=== PATIENT | male | born 1960 | race Caucasian/White ===

== ENCOUNTER 2020-04-21 10:18 | Emergency (ER) | payer OTHER ==
[~2020-04-21] VITALS: Ht 180.3 cm; Wt 78.4 kg
[2020-04-21] MEDS ORDERED: LISI10TA4 PO (10:28)
--- NOTE | 2020-04-21 10:59 | REP ---
Clinical: Trauma. Injury. Technique: AP, lateral, bilateral oblique views of the right second digit. Findings: Age-related degenerative changes are appreciated. Soft tissue swelling is suggested. No acute fracture or dislocation. No obvious foreign body. Impression: No acute fracture or dislocation. Electronically Signed by Yury Parker MD 04/21/2020 10:50 A
[2020-04-21] MEDS ORDERED: CEPHALEXIN 500 MG CAP PO ONE (11:15)
[2020-04-21] MEDS ORDERED: LIDOCAINE 2% MDV 20ML VIAL SC ONE (11:15)
[2020-04-21] MEDS ORDERED: KEFL500C17 PO (12:35)
[2020-04-21] MEDS ORDERED: NORC1TAB7 PO (12:36)
[2020-04-21 12:51] VITALS: BP 133/88
== END 2020-04-21 12:57 | disposition home or self-care (01) ==
LOC: M ED 10:18
DX: S61.210A Laceration without foreign body of right index finger without damage to nail, initial encounter (principal); W23.0XXA Caught, crushed, jammed, or pinched between moving objects, initial encounter; Y92.018 Other place in single-family (private) house as the place of occurrence of the external cause; I10 Essential (primary) hypertension; Z79.899 Other long term (current) drug therapy; Z88.1 Allergy status to other antibiotic agents

== ENCOUNTER → 2021-02-10 | Outpatient (CLI) | payer OTHER ==
[~2021-02-10] MED LIST: KEFL500C17 PO; LISI10TA22 PO; NORC1TAB7 PO
--- NOTE | 2021-02-10 14:38 | REP ---
INDICATION: PAIN IN RIGHT SHOULDER COMPARISON: None. TECHNIQUE: Internal rotation, external rotation, and Y view. FINDINGS: Advanced degenerative changes include cortical irregularity and broad-based osteophyte formation along the greater tuberosity/lateral margin of the humeral head as well as the inferior periarticular portion of the humeral head. There is associated sclerosis and irregularity to the calcified glenoid rim. The subacromial space is decreased. No periarticular calcifications are identified. There appears to be prior surgical intervention at the distal clavicle. IMPRESSION: Early advanced arthritic degenerative changes. <Electronically signed by Yury Parker > 02/10/21 [id number]
== END ==
LOC: M ADAMS 10:47
PROVIDERS: ATTEND Physician Assistant Medical
DX: M19.011 Primary osteoarthritis, right shoulder (principal)

== ENCOUNTER → 2021-03-25 | Outpatient (CLI) | payer OTHER ==
[~2021-03-25] MED LIST changes: +ISOVUE-300 61% 50ML VIAL As Ordered ONE; +LIDOCAINE 1% MDV 20ML VIAL As Ordered ONE
--- NOTE | 2021-03-25 10:44 | REP ---
INDICATION: OA OF RT SHOULDER, STRAIN OF MUSC/TEND. COMPARISON: None. TECHNIQUE: Standard helical technique using 2-3 mm increments and reconstructed in both sagittal and coronal reconstructions after the glenohumeral injection of radiographic contrast. The glenohumeral injection was performed by Jacquelyn SILVERIO. FINDINGS: There is a very subtle hairline linear collection of contrast in the inferior labrum best seen on the coronal images but on the axial as well. Some of the injected contrast has migrated superior to the supraspinatus tendon. IMPRESSION: 1. Very subtle findings suggesting a partial inferior labral tear. 2. Evidence of a supraspinatus tendon tear. <Electronically signed by Gautam Olmos > 03/25/21 1048
--- NOTE | 2021-03-25 14:51 | REP ---
INDICATION: OA OF RT SHOULDER, STRAIN OF MUSC/TEND. COMPARISON: None TECHNIQUE: The procedure was performed by JEAN CLAUDE King, under the direct supervision of Dr. Dominguez. The benefits and risks of the procedure were explained to the patient, and an informed consent was obtained. Directly prior to the start of the procedure, a formal time-out was completed in the procedure room. The right glenohumeral joint space was localized using fluoroscopic guidance. The skin was prepped and draped in a sterile fashion. Approximately 5 mL of 1% Lidocaine 10 mg/ml was used as a local anesthetic. Using fluoroscopic guidance, a #22 gauge spinal needle was inserted and advanced into the right glenohumeral joint space. Approximately 12 mL of Isovue 300 was injected to verify placement and for postprocedural imaging. The needle was removed and the patient was taken to CT for post procedural imaging. FINDINGS: The patient tolerated the procedure well and there were no immediate complications. IMPRESSION: Fluoroscopically guided right shoulder intra-articular CT arthrogram. 0.1 minutes of fluoroscopy time was utilized for this procedure. Some fluoroscopic images are performed with last image hold technology. These images require no additional radiation. <Electronically signed by Jacquelyn Medina > 03/25/21 0136 <Electronically signed by Des Dominguez > 03/25/21 [id number]
== END ==
LOC: M RADPRO 08:39
PROVIDERS: ATTEND Orthopaedic Surgery Sports Medicine
DX: M19.011 Primary osteoarthritis, right shoulder (principal); S46.011A Strain of muscle(s) and tendon(s) of the rotator cuff of right shoulder, initial encounter; Y99.8 Other external cause status; Y92.9 Unspecified place or not applicable; Y93.9 Activity, unspecified; X58.XXXA Exposure to other specified factors, initial encounter
CPT/HCPCS: 23350; 73200; 77002; Q9967

== ENCOUNTER → 2021-06-09 | Outpatient (REF) | payer OTHER ==
[~2021-06-09] MED LIST changes: -ISOVUE-300 61% 50ML VIAL As Ordered ONE; -LIDOCAINE 1% MDV 20ML VIAL As Ordered ONE
[2021-06-09 12:47] LABS: BASO # 0.1 10^3/uL (0.0-0.2); BASO % 0.9 % (0.0-1.0); EOS # 0.3 10^3/uL (0.0-0.5); EOS % 3.6 % (0.0-3.0); HEMATOCRIT 43.2 % (42.0-52.0); HEMOGLOBIN 14.5 g/dl (13.5-17.5); LYMPH # 2.5 10^3/uL (1.5-5.0); LYMPH % 32.5 % (24.0-44.0); MEAN CORPUSCULAR HEMOGLOBIN 32.6 pg (27.0-33.0); MEAN CORPUSCULAR HGB CONC 33.6 g/dl (32.0-36.5); MEAN CORPUSCULAR VOLUME 97.1 fl (80.0-96.0); MONO # 0.6 10^3/uL (0.0-0.8); MONO % 7.1 % (2.0-8.0); NEUTROPHILS # 4.3 10^3/uL (1.5-8.5); NEUTROPHILS % 55.5 % (36.0-66.0); PLATELET COUNT, AUTOMATED 184 10^3/uL (150-450); RED BLOOD COUNT 4.45 10^6/uL (4.30-6.10); WHITE BLOOD COUNT 7.7 10^3/uL (4.0-10.0)
[2021-06-09 13:56] LABS: ALBUMIN 3.7 GM/DL (3.2-5.2); ALT/SGPT 28 U/L (12-78); BILIRUBIN,TOTAL 0.3 MG/DL (0.2-1.0); BLOOD UREA NITROGEN 14 MG/DL (7-18); CALCIUM LEVEL 8.9 MG/DL (8.8-10.2); CARBON DIOXIDE LEVEL 28 MEQ/L (21-32); CHLORIDE LEVEL 108 MEQ/L (98-107); CHOLESTEROL LEVEL 193 MG/DL (<200); CHOLESTEROL RISK RATIO 4.386 (<5); GLOMERULAR FILTRATION RATE > 60.0 (>49); GLUCOSE, FASTING 85 MG/DL (70-100); HDL CHOLESTEROL 44 MG/DL (>40); LDL CHOLESTEROL 118 MG/DL (<100); NON-HDL-C 149 MG/DL; POTASSIUM SERUM 4.3 MEQ/L (3.5-5.1); SODIUM LEVEL 140 MEQ/L (136-145); TOTAL PROTEIN 6.8 GM/DL (6.4-8.2); TRIGLYCERIDES LEVEL 154 MG/DL (<150)
== END ==
LOC: M SFHCADAM 09:47
PROVIDERS: ATTEND Physician Assistant Medical
DX: I10 Essential (primary) hypertension (principal); N52.9 Male erectile dysfunction, unspecified; L56.8 Other specified acute skin changes due to ultraviolet radiation; F17.210 Nicotine dependence, cigarettes, uncomplicated

== ENCOUNTER 2021-07-16 13:49 | Emergency (ER) | payer OTHER ==
[~2021-07-16] VITALS: Ht 180.3 cm; Wt 81.4 kg
--- OUTSIDE RECORDS SUMMARY | 2021-07-16 13:58 | CCD | Continuity of Care Document ---
Author Author Nathalia NurseDon Organization Unknown Address [address] [place] [address] Phone [phone] Care Team Providers Care Data Warehouse Consultant Name Role Phone Alexandr Gardner MD AUTM [phone] Problems Active Problems Provider Date Psychogenic impotence Duc Simons MD Onset: 05/14/20 19 Neoplasm of uncertain behavior of prostate Duc white MD Onset: 05/14/2019 Benign prostatic hyperplasia with lower urinary tract symptoms Duc Simons MD Onset: 06/30/2019 Dysuria Duc Simons MD Onset: 06/30/2019 Dribbling of urine Duc Simons MD Onset: 06/30/2019 Poor stream of urine Rob Aviles MD Onset: 12/26/2019 Vasculopathic erectile dysfunction [facility] Onset : 06/03/2020 Vasculopathic erectile dysfunction Rbo Aviles MD Onset : 01/20/2021 Social History Type Date Description Comments Sex Male Tobacco Use Start: Unknown current cigarette smoker started smoking at age 53 Smoking Status Reviewed: 06/14/20 current cigarette smoker star elli smoking at age 53 ETOH Use Consumes 2 beers per day Allergies, Adverse Reactions, Alerts Description No Known Drug Allergies Medications Active Medications SIG Qnty Indications Ordering Provide r Date Tadalafil 20mg Tablets 1 by mouth one hour prior to sex 30tabs F52.21 Rob Aviles MD 09/27/2020 Flomax 0.4mg Capsules take one 30 minutes after dinner daily 30caps N40.1 Rob Aviles MD 0 Lisinopril 5mg Tablets Take One Tablet By Mouth Every Day Unknown Immunizations Description No Information Available Vital Signs Date Vital Result Comment 06/01/2021 9:58am Body Temperature 97.8 F 01/20/2021 9:13am BP Systolic 142 mmHg BP Diastolic 90 mmHg Heart Rate 72 /min Body Temperature 97.9 F Post Void Residual ml 29 Bladder Scanner Results Test Acquired Date Facility Test Result H/L Range Note Laboratory test finding 06/01/2021 [facility] [address] [place] [address] [phone] Total Psa Only 0.39 ng/mL 0.00-4.10 230 Ua Routine 01/20/2021 [facility] REF TO ADDRESS ON ORDER FOR (315)- - Ua Glucose Negative Ua Protein Negative Ua Nitrite Negative Ua Leuko Negative Ua Blood Negative Ua Color Not Entered Ua Ketones Negative Ua Clarity Not Entered Ua Specific [place] >=1.030 1.003-1.030 Ua PH 5.0 5.0-7.5 Ua Bilirubin Negative Ua Urobilinogen 0.2 E.U./dL 0.0-1.0 Procedures Date Code Description Status 01/20/2021 70333 Office/Outpatient Established Lo w MDM 20-29 Min Completed 01/20/2021 66992 Bladder Scan, Post Voiding Resid ual Urine Completed Medical Devices Description No Information Available Encounters Type Date Location Provider Dx Diagnosis Office Visit 01/20/2021 9:15a [place]/ 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
--- OUTSIDE RECORDS SUMMARY | 2021-07-16 13:58 | CCD | Continuity of Care Document ---
Author Author Don BYRNE [facility] Organization Unknown Address [address] [place] [id number] Phone [phone] Problems Active Problems Provider Date Psychogenic impotence Duc Simons MD Onset: 05/14/20 19 Neoplasm of uncertain behavior of prostate Duc white MD Onset: 05/14/2019 Benign prostatic hyperplasia with lower urinary tract symptoms Duc Simons MD Onset: 06/30/2019 Dysuria Duc Simons MD Onset: 06/30/2019 Dribbling of urine Duc Simons MD Onset: 06/30/2019 Poor stream of urine Rob Aviles MD Onset: 12/26/2019 Vasculopathic erectile dysfunction [facility] Onset : 06/03/2020 Vasculopathic erectile dysfunction Rob Aviles MD Onset : 01/20/2021 Social History [...] Available Vital Signs Date Vital Result Comment 06/08/2021 2:15pm BP Systolic 150 mmHg BP Diastolic 90 mmHg Heart Rate 84 /min Respiratory Rate 18 /min 06/01/2021 9:58am Body Temperature 97.8 F Results Test Acquired Date Facility Test Result H/L Range Note 230 Ua Routine 06/08/2021 [facility] REF TO DR ADDRESS ON ORDER FOR (315)- - Ua Glucose Negative Ua Protein Negative Ua Nitrite Negative Ua Leuko Negative Ua Blood Negative Ua Color Not Entered Ua Ketones Negative Ua Clarity Not Entered Ua Specific [place] >=1.030 1.003-1.030 Ua PH 6.5 5.0-7.5 Ua Bilirubin Negative Ua Urobilinogen 1.0 E.U./dL 0.0-1.0 Laboratory test finding 06/01/2021 [facility] [address] [place] [address] [phone] Total Psa Only 0.39 ng/mL 0.00-4.10 230 Ua Routine 01/20/2021 [facility] REF TO DR ADDRESS ON ORDER FOR (315)- - Ua Glucose Negative Ua Protein Negative Ua Nitrite Negative Ua Leuko Negative Ua Blood Negative Ua Color Not Entered Ua Ketones Negative Ua Clarity Not Entered Ua Specific [place] >=1.030 1.003-1.030 Ua PH 5.0 5.0-7.5 Ua Bilirubin Negative Ua Urobilinogen 0.2 E.U./dL 0.0-1.0 Procedures Date Code Description Status 06/08/2021 42602 Office/Outpatient Established Mo d MDM 30-39 Min Completed 01/20/2021 63893 Office/Outpatient Established Lo w MDM 20-29 Min Completed 01/20/2021 87387 Bladder Scan, Post Voiding Resid ual Urine Completed Medical Devices Description No Information Available Encounters Type Date Location Provider Dx Diagnosis Office Visit 06/08/2021 2:00p [place]/ [facility] NICHOLAS Don N40.1 Benign prostatic hyperplasia with lower urinary tract symp R39.12 Poor urinary stream N52.03 Comb artrl insuff & corporo- venous occlusv erectile dysfnct Office Visit 01/20/2021 9:15a [place]/ 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 NICHOLAS Saldivar 06/01/2021 N40.1 Benign prostatic hyperplasia wit h lower urinary tract symptoms Rob Aviles MD 06/01/2021 N40.1 Benign prostatic hyperplasia wit h lower urinary tract symptoms [place] Nurse 06/01/2021 N40.1 Benign prostatic hyperplasia wit h lower urinary tract symp Ham Fraire MD 01/20/2021 N40.1 Benign prostatic hyperplasia wit h lower urinary tract symptoms Rob Aviles MD 01/20/2021 R39.12 Poor urinary stream Rob salazar MD 01/20/2021 

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
--- OUTSIDE RECORDS SUMMARY | 2021-07-16 13:58 | CCD | Continuity of Care Document ---
Author Author Don BYRNE [facility] Organization Unknown Address [address] [place] [address] Phone [phone] Problems Active Problems Provider Date Psychogenic impotence Duc Simons MD Onset: 05/14/20 19 Neoplasm of uncertain behavior of prostate Duc white MD Onset: 05/14/2019 Benign prostatic hyperplasia with lower urinary tract symptoms Duc Simons MD Onset: 06/30/2019 Dysuria Duc Simons MD Onset: 06/30/2019 Dribbling of urine Duc Simons MD Onset: 06/30/2019 Poor stream of urine Rob Aviles MD Onset: 12/26/2019 Vasculopathic erectile dysfunction [facility] Onset : 06/03/2020 Vasculopathic erectile dysfunction [...] Negative Ua Clarity Not Entered Ua Specific [place] >=1.030 1.003-1.030 Ua PH 6.5 5.0-7.5 Ua Bilirubin Negative Ua Urobilinogen 1.0 E.U./dL 0.0-1.0 Laboratory test finding 06/01/2021 [facility] [address] [place] [address] [phone] Total Psa Only 0.39 ng/mL 0.00-4.10 230 Ua Routine 01/20/2021 [facility] REF TO DR ADDRESS ON ORDER FOR (315)- - Ua Glucose Negative Ua Protein Negative Ua Nitrite Negative Ua Leuko Negative Ua Blood Negative Ua Color Not Entered Ua Ketones Negative Ua Clarity Not Entered Ua Specific [place] >=1.030 1.003-1.030 Ua PH 5.0 5.0-7.5 Ua Bilirubin Negative Ua Urobilinogen 0.2 E.U./dL 0.0-1.0 Procedures Date Code Description Status 06/08/2021 85670 Office/Outpatient Established Mo d MDM 30-39 Min Completed 01/20/2021 20861 Office/Outpatient Established Lo w MDM 20-29 Min Completed 01/20/2021 99589 Bladder Scan, Post Voiding Resid ual Urine Completed Medical Devices Description No Information Available Encounters Type Date Location Provider Dx Diagnosis Office Visit 06/08/2021 2:00p [place]/ [facility] NICHOLAS Don N40.1 Benign prostatic hyperplasia with lower urinary tract symp R39.12 Poor urinary stream N52.03 Comb artrl insuff & corporo- venous occlusv erectile dysfnct Office Visit 01/20/2021 9:15a [place]/ 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 * 06/08/2022 9:00 am - [place] Nurse at [place] 06/08/2021 - NICHOLAS Saldivar* N40.1 [...]
--- OUTSIDE RECORDS SUMMARY | 2021-07-16 13:58 | CCD | Continuity of Care Document ---
Author Author Nathalia NurseDon Organization Unknown Address [address] [place] [address] Phone [phone] Care Team Providers Care Form Maker Name Role Phone Alexandr Gardner MD AUTM [phone] Problems Active Problems Provider Date Psychogenic impotence [...] MD Onset: 12/26/2019 Vasculopathic erectile dysfunction [facility] Onset : 06/03/2020 Vasculopathic erectile dysfunction [...] finding 06/01/2021 [facility] [address] [place] [address] [phone] PSA Total <pending> 230 Ua Routine 01/20/2021 [facility] REF TO DR ADDRESS ON ORDER FOR (169)- - Ua Glucose Negative Ua Protein Negative Ua Nitrite Negative Ua Leuko Negative Ua Blood Negative Ua Color Not Entered Ua Ketones Negative Ua Clarity Not Entered Ua Specific [place] >=1.030 1.003-1.030 Ua PH 5.0 5.0-7.5 Ua Bilirubin Negative Ua Urobilinogen 0.2 E.U./dL 0.0-1.0 Procedures Date Code Description Status 01/20/2021 15238 Office/Outpatient Established Lo w MDM 20-29 Min Completed 01/20/2021 04427 Bladder Scan, Post Voiding Resid ual Urine Completed Medical Devices Description No Information Available Encounters Type Date Location Provider Dx Diagnosis Office Visit 01/20/2021 9:15a [place]/ 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 01/20/2021 - Rob Aviles MD* N40.1 Benign [...]
--- OUTSIDE RECORDS SUMMARY | 2021-07-16 13:58 | CCD | Continuity of Care Document ---
Author Author Don [facility]NE [facility] Organization Unknown Address [address] [place] [address] Phone [phone] Problems Active Problems Provider Date Psychogenic impotence Duc Simons MD Onset: 05/14/20 19 Neoplasm of uncertain behavior of prostate Duc white MD Onset: 05/14/2019 Benign prostatic hyperplasia with lower urinary tract symptoms Duc Simons MD Onset: 06/30/2019 Dysuria Duc Simons MD Onset: 06/30/2019 Dribbling of urine Duc Simons MD Onset: 06/30/2019 Poor stream of urine Rob Aviles MD Onset: 12/26/2019 Vasculopathic erectile dysfunction [facility] Onset : 06/03/2020 Vasculopathic erectile dysfunction Rob [...] Negative Ua Clarity Not Entered Ua Specific [place] >=1.030 1.003-1.030 Ua PH 6.5 5.0-7.5 Ua Bilirubin Negative Ua Urobilinogen 1.0 E.U./dL 0.0-1.0 Laboratory test finding 06/01/2021 [facility] [address] [place] [address] [phone] Total Psa Only 0.39 ng/mL 0.00-4.10 230 Ua Routine 01/20/2021 [facility] REF TO DR ADDRESS ON ORDER FOR (315)- - Ua Glucose Negative Ua Protein Negative Ua Nitrite Negative Ua Leuko Negative Ua Blood Negative Ua Color Not Entered Ua Ketones Negative Ua Clarity Not Entered Ua Specific [place] >=1.030 1.003-1.030 Ua PH 5.0 5.0-7.5 Ua Bilirubin Negative Ua Urobilinogen 0.2 E.U./dL 0.0-1.0 Procedures Date Code Description Status 06/08/2021 08867 Office/Outpatient Established Mo d MDM 30-39 Min Completed 01/20/2021 77666 Office/Outpatient Established Lo w MDM 20-29 Min Completed 01/20/2021 22395 Bladder Scan, Post Voiding Resid ual Urine Completed Medical Devices Description No Information Available Encounters Type Date Location Provider Dx Diagnosis Office Visit 06/08/2021 2:00p [place]/ [facility] NICHOLAS Don N40.1 Benign prostatic hyperplasia with lower urinary tract symp R39.12 Poor urinary stream N52.03 Comb artrl insuff & corporo- venous occlusv erectile dysfnct Office Visit 01/20/2021 9:15a [place]/ 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 Urology * 06/08/2022 9:00 am - [place] Nurse at [place] 06/08/2021 - NICHOLAS Saldivar* N40.1 [...]
--- OUTSIDE RECORDS SUMMARY | 2021-07-16 13:58 | CCD | Continuity of Care Document ---
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 Benign prostatic hyperplasia with lower urinary tract symptoms Duc Simons MD Onset: 06/30/2019 Dysuria Duc Simons MD Onset: 06/30/2019 Dribbling of urine Duc Simons MD Onset: 06/30/2019 Poor stream of urine Rob Aviles MD Onset: 12/26/2019 Vasculopathic erectile dysfunction [facility] Onset : 06/03/2020 Vasculopathic erectile dysfunction [...] Negative Ua Clarity Not Entered Ua Specific [place] >=1.030 1.003-1.030 Ua PH 6.5 5.0-7.5 Ua Bilirubin Negative Ua Urobilinogen 1.0 E.U./dL 0.0-1.0 Laboratory test finding 06/01/2021 [facility] [address] [place] [address] [phone] Total Psa Only 0.39 ng/mL 0.00-4.10 230 Ua Routine 01/20/2021 [facility] REF TO DR ADDRESS ON ORDER FOR (315)- - Ua Glucose Negative Ua Protein Negative Ua Nitrite Negative Ua Leuko Negative Ua Blood Negative Ua Color Not Entered Ua Ketones Negative Ua Clarity Not Entered Ua Specific [place] >=1.030 1.003-1.030 Ua PH 5.0 5.0-7.5 Ua Bilirubin Negative Ua Urobilinogen 0.2 E.U./dL 0.0-1.0 Procedures Date Code Description Status 06/08/2021 16269 Office/Outpatient Established Mo d MDM 30-39 Min Completed 01/20/2021 94533 Office/Outpatient Established Lo w MDM 20-29 Min Completed 01/20/2021 45601 Bladder Scan, Post Voiding Resid ual Urine Completed Medical Devices Description No Information Available Encounters Type Date Location Provider Dx Diagnosis Office Visit 06/08/2021 2:00p [place]/ 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 Urology * 06/08/2022 9:00 am - [place] Nurse at [place]/ A.P Urology 06/08/2021 - NICHOLAS Saldivar* N40.1 [...]
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
--- OUTSIDE RECORDS SUMMARY | 2021-07-16 13:58 | CCD | Continuity of Care Document ---
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/2019 Benign prostatic hyperplasia with lower urinary tract symptoms Duc Simons MD Onset: 06/30/2019 Dysuria Duc Simons MD Onset: 06/30/2019 Dribbling of urine Duc Simons MD Onset: 06/30/2019 Poor stream of urine Rob Aviles MD Onset: 12/26/2019 Vasculopathic erectile dysfunction [facility] Onset : 06/03/2020 Vasculopathic erectile dysfunction Rob [...] finding 06/01/2021 [facility] [address] [place] [address] [phone] PSA Total <pending> 230 Ua Routine 01/20/2021 [facility] REF TO DR ADDRESS ON ORDER FOR (354)- - Ua Glucose Negative Ua Protein Negative Ua Nitrite Negative Ua Leuko Negative Ua Blood Negative Ua Color Not Entered Ua Ketones Negative Ua Clarity Not Entered Ua Specific [place] >=1.030 1.003-1.030 Ua PH 5.0 5.0-7.5 Ua Bilirubin Negative Ua Urobilinogen 0.2 E.U./dL 0.0-1.0 Procedures Date Code Description Status 01/20/2021 32935 Office/Outpatient Established Lo w MDM 20-29 Min Completed 01/20/2021 39333 Bladder Scan, Post Voiding Resid ual Urine Completed Medical Devices Description No Information Available Encounters Type Date Location Provider Dx Diagnosis Office Visit 01/20/2021 9:15a [place]/ 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 Urology 01/20/2021 - Rob Aviles MD* [...]
--- OUTSIDE RECORDS SUMMARY | 2021-07-16 13:58 | CCD ---
Author Author [facility] Organization [facility] Address Unknown Phone Unavailable Care Team Providers Care Towboat Captain Name Role Phone Mary Collins Unavailable PROBLEMS Type Condition ICD9-CM Code [id number] Code Onset Dates Condition S tatus W/U Status Risk SNOMED Code Notes Problem Cigarette nicotine dependence without complication F17.210 Active confirmed 43139302 Problem Photosensitivity L56.8 Active confirmed 901 56548 Problem Essential hypertension I10 Active confirmed 54186938 Problem Other chronic pain G89.29 Active confirmed 8 8370909 Problem Erectile dysfunction, unspecified erectile dysfunction typ e N52.9 Active confirmed 523700470 ALLERGIES No Known Allergies ENCOUNTERS from 1960 to 2021-06-09 Encounter Location Date Provider Diagnosis [address] [place] [address] May, Mary Collins IMMUNIZATIONS No Information SOCIAL HISTORY Tobacco Use: Social History Observation Description Date Details (start date - stop date) Current Smoker Sex Assigned At : Social History Observation Description Sex Assigned At Unknown Education: Question Answer Notes Level of Education: College Audit Question Answer Notes Total Score: 4 Interpretation: Alcohol Education Language: Question Answer Notes Languages spoken: Vincentian Quaker: Question Answer Notes Quaker buddhist Sexual Hx: Question Answer Notes Had sex [...] Information RESULTS No Results REASON FOR VISIT window tint sticker MEDICAL (GENERAL) HISTORY Type Description Date Medical [...] Information ASSESSMENTS No Information PLAN OF TREATMENT No Information Insurance Providers Payer Name Payer Address Payer Phone Insured Name Patient Relati onship to Insured Coverage Start Date Coverage End Date [facility] CORPORATE CLAIMS DEPT [place] [id number] [place] [phone] MANUEL DAVIS self
--- OUTSIDE RECORDS SUMMARY | 2021-07-16 13:58 | CCD | Continuity of Care Document ---
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 Onset : 06/03/2020 Vasculopathic erectile dysfunction [...] finding 06/01/2021 [facility] [address] [place] [address] [phone] Total Psa Only 0.39 ng/mL 0.00-4.10 230 Ua Routine 01/20/2021 [facility] REF TO DR ADDRESS ON ORDER FOR (464)- - Ua Glucose Negative Ua Protein Negative Ua Nitrite Negative Ua Leuko Negative Ua Blood Negative Ua Color Not Entered Ua Ketones Negative Ua Clarity Not Entered Ua Specific [place] >=1.030 1.003-1.030 Ua PH 5.0 5.0-7.5 Ua Bilirubin Negative Ua Urobilinogen 0.2 E.U./dL 0.0-1.0 Procedures Date Code Description Status 01/20/2021 88231 Office/Outpatient Established Lo w MDM 20-29 Min Completed 01/20/2021 38300 Bladder Scan, Post Voiding Resid ual Urine Completed Medical Devices Description No Information Available Encounters Type Date Location Provider Dx Diagnosis Office Visit 01/20/2021 9:15a [place]/ 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
--- OUTSIDE RECORDS SUMMARY | 2021-07-16 13:58 | CCD ---
Author Author [facility] Organization [facility] Address Unknown Phone Unavailable Care Team Providers Care Staff Analyst Name Role Phone Mary Collins Unavailable PROBLEMS Type Condition ICD9-CM Code [id number] Code Onset Dates Condition S tatus W/U Status Risk SNOMED Code Notes Problem Cigarette nicotine dependence without complication F17.210 Active confirmed 00856428 Problem Photosensitivity L56.8 Active confirmed 901 09243 Problem Essential hypertension I10 Active confirmed 17031163 Problem Other chronic pain G89.29 Active confirmed 8 2286615 Problem Erectile dysfunction, unspecified erectile dysfunction typ e N52.9 Active confirmed 095496406 ALLERGIES No Known Allergies ENCOUNTERS from 1960 to 2021-06-14 Encounter Location Date Provider Diagnosis [address] [place] [address] 14 Jun, 2021 Mary Collins IMMUNIZATIONS No Information SOCIAL HISTORY Tobacco Use: Social History Observation Description Date Details (start date - stop date) Current Smoker Sex Assigned At : Social History Observation Description Sex Assigned At Unknown Education: Question Answer Notes Level of Education: College Audit Question Answer Notes Total Score: 4 Interpretation: Alcohol Education Language: Question Answer Notes Languages spoken: Argentine Presybeterian: Question Answer Notes [employer]ybeterian [employer] Sexual Hx: Question Answer Notes Had sex [...] Information RESULTS No Results REASON FOR VISIT 2nd opinion MEDICAL (GENERAL) HISTORY Type Description Date Medical [...] Insured Coverage Start Date Coverage End Date [facility] CORPORATE CLAIMS DEPT [address] [place] [phone] MANUEL DAVIS self
--- OUTSIDE RECORDS SUMMARY | 2021-07-16 13:58 | CCD | Continuity of Care Document ---
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 white MD Onset: 05/14/2019 Benign prostatic hyperplasia with lower urinary tract symptoms Duc Simons MD Onset: 06/30/2019 Dysuria Duc Simons MD Onset: 06/30/2019 Dribbling of urine Duc Simons MD Onset: 06/30/2019 Poor stream of urine Rob Aviles MD Onset: 12/26/2019 Vasculopathic erectile dysfunction [facility] Onset : 06/03/2020 Vasculopathic erectile dysfunction [...] finding 06/01/2021 [facility] [address] [place] [address] [phone] PSA Total <pending> 230 Ua Routine 01/20/2021 [facility] REF TO DR ADDRESS ON ORDER FOR (137)- - Ua Glucose Negative Ua Protein Negative Ua Nitrite Negative Ua Leuko Negative Ua Blood Negative Ua Color Not Entered Ua Ketones Negative Ua Clarity Not Entered Ua Specific [place] >=1.030 1.003-1.030 Ua PH 5.0 5.0-7.5 Ua Bilirubin Negative Ua Urobilinogen 0.2 E.U./dL 0.0-1.0 Procedures Date Code Description Status 01/20/2021 00123 Office/Outpatient Established Lo w MDM 20-29 Min Completed 01/20/2021 43972 Bladder Scan, Post Voiding Resid ual Urine Completed Medical Devices Description No Information Available Encounters Type Date Location Provider Dx Diagnosis Office Visit 01/20/2021 9:15a [place]/ A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 Urology 01/20/2021 - Rob Aviles MD* [...]
--- OUTSIDE RECORDS SUMMARY | 2021-07-16 13:58 | CCD ---
Author Author [facility] Organization [facility] Address Unknown Phone Unavailable Care Team Providers Care Cement Boat And Barge Loader Name Role Phone Mary Collins Unavailable PROBLEMS Type Condition ICD9-CM Code LJS65-RH Code Onset Dates Condition S tatus W/U Status Risk SNOMED Code Notes Problem Cigarette nicotine dependence without complication F17.210 Active confirmed 94244434 Problem Photosensitivity L56.8 Active confirmed 901 71742 Problem Essential hypertension I10 Active confirmed 78371031 Problem Other chronic pain G89.29 Active confirmed 8 8720444 Problem Erectile dysfunction, unspecified erectile dysfunction typ e N52.9 Active confirmed 650831111 ALLERGIES No Known Allergies ENCOUNTERS from 1960 to 2021-06-09 Encounter Location Date Provider Diagnosis [address] [place] [address] Jun, Mary Collins Essential hypertension I10 ; Erectile dy sfunction, unspecified erectile dysfunction type N52.9 ; Photosensitivity L56.8 and Cigarette nicotine dependence without complication F17.210 IMMUNIZATIONS No Information SOCIAL HISTORY Tobacco Use: Social History Observation Description Date Details (start date - stop date) Current Smoker Sex Assigned At : Social History Observation Description Sex Assigned At Unknown Education: Question Answer Notes Level of Education: College Audit Question Answer Notes Total Score: 4 Interpretation: Alcohol Education Language: Question Answer Notes Languages spoken: Slovak Faith: Question Answer Notes Faith sabianism Sexual Hx: Question Answer Notes Had sex [...] REASON FOR REFERRAL No Information VITAL SIGNS Weight 181 lbs Jun, Height 71 in Jun, BMI 25.24 kg/m2 Jun, Heart Rate 77 /min Jun, Respiratory Rate 18 /min Jun, Temperature 97.2 degrees Fahrenheit Jun, Oximetry 98 Jun, Blood pressure systolic 140 mm Hg Jun, Blood pressure diastolic 84 mm Hg Jun, MEDICATIONS Medication SIG (Take, Route, Frequency, Duration) Notes Start Da te End Date Status Tadalafil 20 MG 1 tablet Orally PRN Active Lisinopril 10 MG 1 tablet Orally Once a day for 30 day(s) Active PROCEDURES from 1960 to 2021-06-09 Procedure Date Ordered Result Body Site ELECTROCARDIOGRAM, COMPLETE EKG 2021-06-09 N/A RESULTS No Results REASON FOR VISIT [address] MEDICAL (GENERAL) HISTORY Type Description Date Medical [...] No Information FUNCTIONAL STATUS No Information ASSESSMENTS Encounter Date Diagnosis Assessment Notes Treatment Notes Treatm ent Clinical Notes Jun, Essential hypertension (ICD-10 - I10) COnt current regimen. EKG SR. Jun, Erectile dysfunction, unspec ified erectile dysfunction type (ICD-10 - N52.9) Jun, Photosensitivity (ICD-10 - L56.8) DMV paperwork completed. Jun, Cigarette nicotine dependenc e without complication (ICD-10 - F17.210) Pt counselled heavily on the importance of tobacco abstinence and the dangers not quiting may pose. Discussed various options for cessation with patient. PLAN OF TREATMENT Treatment Notes Assessment Notes Clinical Notes Essential hypertension COnt current regimen. EKG SR. Photosensitivity DMV paperwork completed. Cigarette nicotine dependence without complication Pt counselled heavily on the importance of tobacco abstinence and the dangers not quiting may pose. Discussed various options for cessation with patient. Treatment Notes Test Name Order Date Comprehensive Metabolic Profile (CMP) 2021-06-09 CBC with Differential 2021-06-09 TSH 2021-06-09 LIPID PANEL (CARDIAC RISK) 2021-06-09 Next Appt Details 6 Months, BW today. Reason: Insurance Providers Payer Name Payer Address Payer Phone Insured Name Patient Relati onship to Insured Coverage Start Date Coverage End Date [facility] [employer] CLAIM[employer] DEPT [address] [facility] [phone] MANUEL DAVIS self
--- OUTSIDE RECORDS SUMMARY | 2021-07-16 13:58 | CCD | Continuity of Care Document ---
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/2019 Benign prostatic hyperplasia with lower urinary tract symptoms Duc Simons MD Onset: 06/30/2019 Dysuria Duc Simons MD Onset: 06/30/2019 Dribbling of urine Duc Simons MD Onset: 06/30/2019 Poor stream of urine Rob Aviles MD Onset: 12/26/2019 Vasculopathic erectile dysfunction [facility] Onset : 06/03/2020 Vasculopathic erectile dysfunction [...] Negative Ua Clarity Not Entered Ua Specific [place] >=1.030 1.003-1.030 Ua PH 6.5 5.0-7.5 Ua Bilirubin Negative Ua Urobilinogen 1.0 E.U./dL 0.0-1.0 Laboratory test finding 06/01/2021 [facility] [address] [place] [address] [phone] Total Psa Only 0.39 ng/mL 0.00-4.10 230 Ua Routine 01/20/2021 [facility] REF TO DR ADDRESS ON ORDER FOR (315)- - Ua Glucose Negative Ua Protein Negative Ua Nitrite Negative Ua Leuko Negative Ua Blood Negative Ua Color Not Entered Ua Ketones Negative Ua Clarity Not Entered Ua Specific [place] >=1.030 1.003-1.030 Ua PH 5.0 5.0-7.5 Ua Bilirubin Negative Ua Urobilinogen 0.2 E.U./dL 0.0-1.0 Procedures Date Code Description Status 06/08/2021 92915 Office/Outpatient Established Mo d MDM 30-39 Min Completed 01/20/2021 05307 Office/Outpatient Established Lo w MDM 20-29 Min Completed 01/20/2021 62256 Bladder Scan, Post Voiding Resid ual Urine Completed Medical Devices Description No Information Available Encounters Type Date Location Provider Dx Diagnosis Office Visit 06/08/2021 2:00p [place]/ 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 Urology * 06/08/2022 9:00 am - [place] Nurse at [place]/ A[facility] Urology 06/08/2021 - NICHOLAS Saldivar* N40.1 [...]
--- OUTSIDE RECORDS SUMMARY | 2021-07-16 13:59 | CCD ---
Author Author [facility] Organization [facility] Address Unknown Phone Unavailable Care Team Providers Care Separator Tender Name Role Phone CHAVEZ, Hamdi Bahgat PA Unavailable Unavailable CHAVEZ, Hamdi Bahgat PA Unavailable Unavailable CHAVEZ, Hamdi Bahgat PA Unavailable Unavailable CHAVEZ, Hamdi Bahgat PA Unavailable Unavailable CHAVEZ, Hamdi Bahgat PA Unavailable Unavailable CHAVEZ, Hamdi Bahgat PA Unavailable Unavailable CHAVEZ, Hamdi Bahgat PA Unavailable Unavailable CHAVEZ, Hamdi Bahgat PA Unavailable Unavailable CHAVEZ, Hamdi Bahgat PA Unavailable Unavailable CHAVEZ, Hamdi Bahgat PA Unavailable Unavailable CHAVEZ, Hamdi Bahgat PA Unavailable Unavailable CHAVEZ, Hamdi Bahgat PA Unavailable Unavailable CHAVEZ, Hamdi Bahgat PA Unavailable Unavailable CHAVEZ, Hamdi Bahgat PA Unavailable Unavailable Dang COHN MD Unavailable Unavailable Dang COHN MD Unavailable Unavailable Dang COHN MD Unavailable Unavailable Dang COHN MD Unavailable Unavailable Dang COHN MD Unavailable Unavailable TATYANA, F VIKAS MD Unavailable Unavailable TATYANA, F VIKAS MD Unavailable Unavailable TATYANA, F VIKAS MD Unavailable Unavailable TATYANA, F VIKAS MD Unavailable Unavailable TATYANA, F VIKAS MD Unavailable Unavailable TATYANA, F VIKAS MD Unavailable Unavailable TATYANA, F VIKAS MD Unavailable Unavailable TATYANA, F VIKAS MD Unavailable Unavailable TATYANA, F VIKAS MD Unavailable Unavailable TATYANA, F VIKAS MD Unavailable Unavailable TATYANA, F VIKAS MD Unavailable Unavailable TATYANA, F VIKAS MD Unavailable Unavailable TATYANA, F VIKAS MD Unavailable Unavailable TATYANA, F VIKAS MD Unavailable Unavailable TATYANA, F VIKAS MD Unavailable Unavailable TATYANA, F VIKAS MD Unavailable Unavailable TATYANA, F VIKAS MD Unavailable Unavailable TATYANA, F VIKAS MD Unavailable Unavailable TATYANA, F VIKAS MD Unavailable Unavailable TATYANA, F VIKAS MD Unavailable Unavailable TATYANA, F VIKAS MD Unavailable Unavailable TATYANA, F VIKAS MD Unavailable Unavailable TATYANA, F VIKAS MD Unavailable Unavailable TATYANA, F VIKAS MD Unavailable Unavailable TATYANA, F VIKAS MD Unavailable Unavailable TATYANA, F VIKAS MD Unavailable Unavailable TATYANA, F VIKAS MD Unavailable Unavailable TATYANA, F VIKAS MD Unavailable Unavailable TATYANA, F VIKAS MD Unavailable Unavailable TATYANA, F VIKAS MD Unavailable Unavailable TATYANA, F VIKAS MD Unavailable Unavailable TATYANA, F VIKAS MD Unavailable Unavailable TATYANA, F VIKAS MD Unavailable Unavailable TATYANA, F VIKAS MD Unavailable Unavailable TATYANA, F VIKAS MD Unavailable Unavailable TATYANA, F VIKAS MD Unavailable Unavailable TATYANA, F VIKAS MD Unavailable Unavailable TATYANA, F VIKAS MD Unavailable Unavailable TATYANA, F VIKAS MD Unavailable Unavailable TATYANA, F VIKAS MD Unavailable Unavailable TATYANA, F VIKAS MD Unavailable Unavailable TATYANA, F VIKAS MD Unavailable Unavailable TATYANA, F VIKAS MD Unavailable Unavailable TATYANA, F VIKAS MD Unavailable Unavailable TATYANA, F VIKAS MD Unavailable Unavailable TATYANA, F VIKAS MD Unavailable Unavailable TATYANA, F VIKAS MD Unavailable Unavailable TATYANA, F VIKAS MD Unavailable Unavailable TATYANA, F VIKAS MD Unavailable Unavailable TATYANA F VIKAS MD Unavailable Unavailable TATYANA F VIKAS MD Unavailable Unavailable TATYANA, F VIKAS MD Unavailable Unavailable TATYANA, F VIKAS MD Unavailable Unavailable TATYANA, F VIKAS MD Unavailable Unavailable TATYANA, F VIKAS MD Unavailable Unavailable TATYANA, F VIKAS MD Unavailable Unavailable TATYANA, F VIKAS MD Unavailable Unavailable TATYANA, F VIKAS MD Unavailable Unavailable TATYANA, F VIKAS MD Unavailable Unavailable TATYANA, F VIKAS MD Unavailable Unavailable TATYANA, F VIKAS MD Unavailable Unavailable TATYANA, F VIKAS MD Unavailable Unavailable TATYANA, F VIKAS MD Unavailable Unavailable TATYANA, F VIKAS MD Unavailable Unavailable TATYANA, F VIKAS MD Unavailable Unavailable TATYANA F VIKAS MD Unavailable Unavailable TATYANA F VIKAS MD Unavailable Unavailable TATYANA, F VIKAS MD Unavailable Unavailable TATYANA, F VIKAS MD Unavailable Unavailable TATYANA, F VIKAS MD Unavailable Unavailable TATYANA, F VIKAS MD Unavailable Unavailable TATYANA, F VIKAS MD Unavailable Unavailable TATYANA, F VIKAS MD Unavailable Unavailable TATYANA, F VIKAS KERN Unavailable Unavailable TATYANA, F VIKAS KERN Unavailable Unavailable TATYANA, F VIKAS KERN Unavailable Unavailable TATYANA, F VIKAS KERN Unavailable Unavailable TATYANA, F VIKAS KERN Unavailable Unavailable TATYANA, F VIKAS KERN Unavailable Unavailable TATYANA, F VIKAS KERN Unavailable Unavailable TATYANA, F VIKAS KERN Unavailable Unavailable TATYANA, F VIKAS KERN Unavailable Unavailable TATYANA, F VIKAS KERN Unavailable Unavailable TATYANA, F VIKAS MD Unavailable Unavailable MARTY (JENKINS), N STUART RPA-C Unavailable Unavailable MARTY (JENKINS), N STUART RPA-C Unavailable Unavailable MARTY (JENKINS), N STUART RPA-C Unavailable Unavailable MARTY (JENKINS), N STUART RPA-C Unavailable Unavailable MARTY (JENKINS), N STUART RPA-C Unavailable Unavailable MARTY (JENKINS), N STUART RPA-C Unavailable Unavailable MARTY (JENKINS), N STUART RPA-C Unavailable Unavailable MARTY (JENKINS), N STUART RPA-C Unavailable Unavailable MARTY (JENKINS), N STUART RPA-C Unavailable Unavailable MARTY (JENKINS), N STUART RPA-C Unavailable Unavailable MARTY (JENKINS), N STUART RPA-C Unavailable Unavailable MARTY (JENKINS), N STUART RPA-C Unavailable Unavailable MARTY (JENKINS), N STUART RPA-C Unavailable Unavailable MARTY (JENKINS), N STUART RPA-C Unavailable Unavailable MARTY (JENKINS), N STUART RPA-C Unavailable Unavailable MARTY (JENKINS), N STUART RPA-C Unavailable Unavailable MARTY (JENKINS), N STUART RPA-C Unavailable Unavailable MARTY (JENKINS), N STUART RPA-C Unavailable Unavailable MARTY (JENKINS), N STUART RPA-C Unavailable Unavailable MARTY (JENKINS), N STUART RPA-C Unavailable Unavailable MARTY (JENKINS), N STUART RPA-C Unavailable Unavailable MARTY (JENKINS), N STUART RPA-C Unavailable Unavailable MARTY (JENKINS), N STUART RPA-C Unavailable Unavailable MARTY (JENKINS), N STUART RPA-C Unavailable Unavailable MARTY (JENKINS), N STUART RPA-C Unavailable Unavailable MARTY (JENKINS), N STUART RPA-C Unavailable Unavailable MARTY (JENKINS), N STUART RPA-C Unavailable Unavailable MARTY (JENKINS), N STUART RPA-C Unavailable Unavailable MARTY (JENKINS), N STUART RPA-C Unavailable Unavailable MARTY (JENKINS), N STUART RPA-C Unavailable Unavailable MARTY (JENKINS), N STUART RPA-C Unavailable Unavailable MARTY (JENKINS), N STUART RPA-C Unavailable Unavailable MARTY (JENKINS), N STUART RPA-C Unavailable Unavailable MARTY (JENKINS), N STUART RPA-C Unavailable Unavailable MARTY (JENKINS), N STUART RPA-C Unavailable Unavailable MARTY (JENKINS), N STUART RPA-C Unavailable Unavailable MARTY (JENKINS), N STUART RPA-C Unavailable Unavailable MARTY (JENKINS), N STUART RPA-C Unavailable Unavailable MARTY (JENKINS), N STUART RPA-C Unavailable Unavailable MARTY (JENKINS), N STUART RPA-C Unavailable Unavailable MARTY (JENKINS), N STUART RPA-C Unavailable Unavailable MARTY (JENKINS), N STUART RPA-C Unavailable Unavailable MARTY (JENKINS), N STUART RPA-C Unavailable Unavailable MARTY (JENKINS), N STUART RPA-C Unavailable Unavailable MARTY (JENKINS), N STUART RPA-C Unavailable Unavailable MARTY (JENKINS), N STUART RPA-C Unavailable Unavailable MARTY (JENKINS), N STUART RPA-C Unavailable Unavailable MARTY (JENKINS), N STUART RPA-C Unavailable Unavailable MARTY (JENKINS), N STUART RPA-C Unavailable Unavailable MARTY (JENKINS), N STUART RPA-C Unavailable Unavailable MARTY (JENKINS), N STUART RPA-C Unavailable Unavailable MARTY (JENKINS), N STUART RPA-C Unavailable Unavailable MARTY (JENKINS), N STUART RPA-C Unavailable Unavailable MARTY (JENKINS), N STUART RPA-C Unavailable Unavailable MARTY (JENKINS), N STUART RPA-C Unavailable Unavailable MARTY (JENKINS), N STUART RPA-C Unavailable Unavailable MARTY (JENKINS), N STUART RPA-C Unavailable Unavailable Mollison, Lupillo Cartagena MD Unavailable Unavailable Mollison, Lupillo Cartagena MD Unavailable Unavailable Mollison, Lupillo Cartagena MD Unavailable Unavailable Mollison, Lupillo Cartagena MD Unavailable Unavailable Mollison, Lupillo Cartagena MD Unavailable Unavailable Mollison, Lupillo Cartagena MD Unavailable Unavailable Mollison, Lupillo Cartagena MD Unavailable Unavailable Mollison, Lupillo Cartagena MD Unavailable Unavailable Mollison, Lupillo Cartagena MD Unavailable Unavailable Mollison, Lupillo Cartagena MD Unavailable Unavailable Mollison, Lupillo Cartagena MD Unavailable Unavailable Mollison, Lupillo Cartagena MD Unavailable Unavailable Mollison, Lupillo Cartagena MD Unavailable Unavailable Mollison, Lupillo Cartagena MD Unavailable Unavailable Mollison, Lupillo Cartagena MD Unavailable Unavailable Mollison, Lupillo Cartagena MD Unavailable Unavailable MollisonLupillo MD Unavailable Unavailable Mollison, Lupillo Cartagena MD Unavailable Unavailable MollisonLupillo MD Unavailable Unavailable Mollison, Lupillo Cartagena MD Unavailable Unavailable Mollison, Lupillo Cartagena MD Unavailable Unavailable Mollison, Lupillo Cartagena MD Unavailable Unavailable Mollison, Lupillo Cartagena MD Unavailable Unavailable Mollison, Lupillo Cartagena MD Unavailable Unavailable Mollison, Lupillo Cartagena MD Unavailable Unavailable Mollison, Lupillo Cartagena MD Unavailable Unavailable Mollison, Lupillo Cartagena MD Unavailable Unavailable Mollison, Lupillo Cartagena MD Unavailable Unavailable Mollison, Lupillo Cartagena MD Unavailable Unavailable Mollison, Lupillo Cartagena MD Unavailable Unavailable CALDERON, L TR PA Unavailable Unavailable CALDERON, L TR PA Unavailable Unavailable CALDERON, L TR PA Unavailable Unavailable CALDERON, L TR PA Unavailable Unavailable CALDERON, L TR PA Unavailable Unavailable CALDERON, L TR PA Unavailable Unavailable CALDERON, L TR PA Unavailable Unavailable CALDERON, L TR PA Unavailable Unavailable CALDERON, L TR PA Unavailable Unavailable CALDERON, L TR PA Unavailable Unavailable CALDERON, L TR PA Unavailable Unavailable CALDERON, L TR PA Unavailable Unavailable CALDERNO, L TR PA Unavailable Unavailable CALDERON, L TR PA Unavailable Unavailable CALDERON, L TR PA Unavailable Unavailable CALDERON, L TR PA Unavailable Unavailable CALDERON, L TR PA Unavailable Unavailable CALDERON, L TR PA Unavailable Unavailable CALDERON, L TR PA Unavailable Unavailable CALDERON, L TR PA Unavailable Unavailable CALDERON, L TR PA Unavailable Unavailable CALDERON, L TR PA Unavailable Unavailable CALDERON, L TR PA Unavailable Unavailable CALDERON, L TR PA Unavailable Unavailable CALDERON, L TR PA Unavailable Unavailable CALDERON, L TR PA Unavailable Unavailable CALDERON, L TR PA Unavailable Unavailable CALDERON, L TR PA Unavailable Unavailable CALDERON, L TR PA Unavailable Unavailable CALDERON, L TR PA Unavailable Unavailable CALDERON, L TR PA Unavailable Unavailable CALDERON, L TR PA Unavailable Unavailable CALDERON, L TR PA Unavailable Unavailable CALDERON, L TR PA Unavailable Unavailable CALDERON, L TR PA Unavailable Unavailable CALDERON, L TR PA Unavailable Unavailable CALDERON, L TR PA Unavailable Unavailable CALDERON, L TR PA Unavailable Unavailable CALDERON, L TR PA Unavailable Unavailable Schgabbie, S Rob Unavailable Unavailable Schnaozzie, S Rob Unavailable Unavailable Schnaozzie, S Rob Unavailable Unavailable Schnaozzie, S Rob Unavailable Unavailable Schnaozzie, S Rob Unavailable Unavailable Schnaozzie, S Rob Unavailable Unavailable Schnaozzie, S Rob Unavailable Unavailable Schnaozzie, S Rob Unavailable Unavailable Schnapp, S Rob Unavailable Unavailable Schnapp, S Rob Unavailable Unavailable Schnapp, S Rob Unavailable Unavailable Schnapp, S Rob Unavailable Unavailable Schnapp, S Rob Unavailable Unavailable Schnapp, S Rob Unavailable Unavailable Schnapp, S Rob Unavailable Unavailable Schnapp, S Rob Unavailable Unavailable Schnapp, S Rob Unavailable Unavailable Schnapp, S Rob Unavailable Unavailable Schnapp, S Rob Unavailable Unavailable Schnapp, S Rob Unavailable Unavailable Schnapp, S Rob Unavailable Unavailable Schnapp, S Rob Unavailable Unavailable Schnapp, S Rob Unavailable Unavailable Schnapp, S Rob Unavailable Unavailable Schnapp, S Rob Unavailable Unavailable Schnapp, S Rob Unavailable Unavailable Schnapp, S Rob Unavailable Unavailable Schnapp, S Rob Unavailable Unavailable Schnapp, S Rob Unavailable Unavailable Schnapp, S Rob Unavailable Unavailable Schnapp, S Rob Unavailable Unavailable Re-disclosure Warning The records that you are about to access may contain information from federally-assisted alcohol or drug abuse programs. If such information is present, then the following federally mandated warning applies: This information has been disclosed to you from records protected by federal confidentiality rules (42 CFR part 2). The federal rules prohibit you from making any further disclosure of this information unless further disclosure is expressly permitted by the written consent of the person to whom it pertains or as otherwise permitted by 42 CFR part 2. A general authorization for the release of medical or other information is NOT sufficient for this purpose. The Federal rules restrict any use of the information to criminally investigate or prosecute any alcohol or drug abuse patient.The records that you are about to access may contain highly sensitive health information, the redisclosure of which is protected by Article 27-F of the [facility] Public Health law. If you continue you may have access to information: Regarding HIV / AIDS; Provided by facilities licensed or operated by the [facility] Office of Mental Health; or Provided by the [facility] Office for People With Developmental Disabilities. If such information is present, then the following [facility] mandated warning applies: This information has been disclosed to you from confidential records which are protected by state law. State law prohibits you from making any further disclosure of this information without the specific written consent of the person to whom it pertains, or as otherwise permitted by law. Any unauthorized further disclosure in violation of state law may result in a fine or fdc sentence or both. A general authorization for the release of medical or other information is NOT sufficient authorization for further disc losure. Encounters Encounter Providers Location Date Indications Data Source(s ) Unknown [address] [facility] [place] [address] 07/13/2021 12:00:00 AM EDT eCW1 ([facility]) Outpatient Attender: VIKAS COHN MDReferrer: STUART FERGUSON ( [place] [facility] 07/12/2021 12:19:31 PM EDT [facility] Recurring Patient Attender: VIKAS COHN MDReferrer: STUART SOTOCIA ([place] [facility] 07/12/2021 09:36:59 AM EDT [facility] Recurring Patient Attender: VIKAS COHN MDReferrer: STUART FERGUSON ([place] [facility] 07/12/2021 09:32:25 AM EDT [facility] Recurring Patient Attender: VIKAS COHN MDReferrer: STUART FERGUSON ([place] [facility] 07/08/2021 02:14:40 PM EDT [facility] Recurring Patient Attender: VIKAS COHN MDReferrer: STUART FERGUSON ([place] [facility] 06/24/2021 03:05:06 PM EDT [facility] Recurring Patient Referrer: STUART FERGUSON ([place]) [facility] 06/14/2021 10:10:30 AM EDT [facility] Unknown [address] [facility] [address] 06/14/2021 12:00:00 AM EDT eCW1 ([facility]) Recurring Patient Referrer: STUART FERGUSON ([place] [facility] 06/13/2021 04:37:28 PM EDT [facility] Outpatient [address] [facility] [address] 06/09/2021 12:00:00 AM EDT eCW1 ([facility]) Outpatient Attender: Laure New/ [facility] 06/08/2021 02:00:00 PM EDT [facility] Unknown [address] [facility] [address] 05/24/2021 12:00:00 AM EDT [facility]CW[facility] Unknown [address] [facility] [place] [address] 04/26/2021 12:00:00 AM EDT eCW1 ([facility]) Unknown [address] [facility] [address] 04/18/2021 12:00:00 AM EDT eCW1 ([facility]) Unknown [address] [facility] [address] 04/14/2021 12:00:00 AM EDT eCW1 ([facility]) Outpatient Attender: Osiel Burks/Marck/Kurt/Re indl 04/01/2021 10:00:00 AM EDT [facility] ([facility] ) Outpatient Attender: Osiel Burks/Marck/Kurt/Re indl 03/08/2021 10:30:00 AM EDT [facility] ([facility] Outpatient [address] [facility] [address] 02/10/2021 12:00:00 AM EDT eCW1 ([facility]) Outpatient Attender: Rob New/ JodiePJulita [facility] 0 01/20/2021 09:15:00 AM EDT [facility]) Outpatient [address] [place], [place] [address] 01/18/2021 12:00:00 AM EDT eCW1 ([facility]) Outpatient [address] [place], [place] [address] 10/20/2020 12:00:00 AM EST eCW1 ([facility]) Outpatient [address] [place], [place] [address] 10/12/2020 12:00:00 AM EST eCW1 ([facility]) Outpatient Attender: Rob New/ JodieP. Urology 1 11/28/2019 08:30:00 AM EST [facility] Out[facility] [address] [place], [place] [address] 09/20/2020 12:00:00 AM EST eCW1 ([facility]) Outpatient [address] [place], [place] [address] 08/23/2020 12:00:00 AM EST eCW1 ([facility]) Outpatient Attender: Rob New/ [facility] 1 10/09/2019 09:15:00 AM EST [facility] Outpatient Attender: Rob New/ [facility] 0 06/14/2020 10:45:00 AM EDT [facility]) Outpatient Attender: Laure New/ Linh Uro log[facility] 06/03/2020 08:40:00 AM EDT [facility]) Recurring Patient Referrer: TR PETERSON 05/24/2020 10: 39:48 AM EDT [facility] Medications Medication Brand Name Start Date Product Form Dose Route Admi nistrative Instructions Pharmacy Instructions Status Indications Reaction Description Data Source(s) 10 mg 07/13/2021 12:00:00 AM EDT tablet 30 TAKE ONE TABLET BY MOUTH EVERY DAY TAKE ONE TABLET BY MOUTH EVERY DAY SOLD: 07/13/2021 [facility] 10 mg 04/30/2021 12:00:00 AM EDT tablet 30 TAKE ONE TABLET BY MOUTH EVERY DAY TAKE ONE TABLET BY MOUTH EVERY DAY SOLD: 06/09/2021 [facility] 10 mg 04/30/2021 12:00:00 AM EDT tablet 30 TAKE ONE TABLET BY MOUTH EVERY DAY TAKE ONE TABLET BY MOUTH EVERY DAY SOLD: 05/09/2021 [facility] 10 mg 03/07/2021 12:00:00 AM EDT tablet 30 TAKE ONE TABLET BY MOUTH EVERY DAY TAKE ONE TABLET BY MOUTH EVERY DAY SOLD: 03/07/2021 [facility] 10 mg 03/07/2021 12:00:00 AM EDT tablet 30 TAKE ONE TABLET BY MOUTH EVERY DAY TAKE ONE TABLET BY MOUTH EVERY DAY SOLD: 04/09/2021 [facility] 10 mg 01/20/2021 12:00:00 AM EDT tablet 30 TAKE ONE TABLET BY MOUTH EVERY DAY TAKE ONE TABLET BY MOUTH EVERY DAY SOLD: 01/24/2021 [facility] 10 mg 11/10/2020 12:00:00 AM EST tablet 30 TAKE ONE TABLET BY MOUTH EVERY DAY TAKE ONE TABLET BY MOUTH EVERY DAY SOLD: 12/19/2020 [facility] 10 mg 11/10/2020 12:00:00 AM EST tablet 30 TAKE ONE TABLET BY MOUTH EVERY DAY TAKE ONE TABLET BY MOUTH EVERY DAY SOLD: 11/10/2020 [facility] 10 mg 10/12/2020 12:00:00 AM EST tablet 30 TAKE ONE TABLET BY MOUTH EVERY DAY TAKE ONE TABLET BY MOUTH EVERY DAY SOLD: 10/12/2020 [facility] tadalafil 20 MG Oral Tablet Tadalafil 09/28/2020 12:00:00 AM EST ORAL completed [facility] ([facility]) tadalafil 20 MG Oral Tablet Tadalafil 09/27/2020 12:00:00 AM EST ORAL active [facility] ([facility]) Pravastatin Sodium 20 MG Oral Tablet Pravastatin Sodium 20 M G 09/20/2020 12:00:00 AM EST 1.0 {tab(s)} active Pr avastatin Sodium 20 MG eCW1 ([facility]) Pravastatin Sodium 20 MG Oral Tablet Pravastatin Sodium 20 M G 09/20/2020 12:00:00 AM EST 1.0 {tab(s)} active Pr avastatin Sodium 20 MG eCW1 ([facility]) Pravastatin Sodium 20 MG Oral Tablet Pravastatin Sodium 20 M G 09/20/2020 12:00:00 AM EST 1.0 {tab(s)} active Pr avastatin Sodium 20 MG eCW1 ([facility]) Pravastatin Sodium 20 MG Oral Tablet Pravastatin Sodium 20 M G 09/20/2020 12:00:00 AM EST 1.0 {tab(s)} active Pr avastatin Sodium 20 MG eCW1 ([facility]) 0.4 mg 08/10/2020 12:00:00 AM EST capsule 30 TAKE ONE CAPSULE BY MOUTH EVERY DAY 30 MINUTES AFTER DINNER TAKE ONE CAPSULE BY MOUTH EVERY DAY 30 M INUTES AFTER DINNER SOLD: 08/11/2020 [facility] Tamsulosin hydrochloride 0.4 MG Oral Capsule [Flomax] Flomax 08/09/2020 12:00:00 AM EST active [facility] ([facility]) tadalafil 5 MG Oral Tablet Tadalafil 06/14/2020 12:00:00 AM EDT ORAL completed [facility]) 10 mg 04/01/2020 12:00:00 AM EDT tablet 30 TAKE ONE TABLET BY MOUTH EVERY DAY TAKE ONE TABLET BY MOUTH EVERY DAY SOLD: 07/11/2020 [facility] 10 mg 04/01/2020 12:00:00 AM EDT tablet 30 TAKE ONE TABLET BY MOUTH EVERY DAY TAKE ONE TABLET BY MOUTH EVERY DAY SOLD: 06/07/2020 [facility] 10 mg 04/01/2020 12:00:00 AM EDT tablet 30 TAKE ONE TABLET BY MOUTH EVERY DAY TAKE ONE TABLET BY MOUTH EVERY DAY SOLD: 09/10/2020 [facility] 10 mg 04/01/2020 12:00:00 AM EDT tablet 30 TAKE ONE TABLET BY MOUTH EVERY DAY TAKE ONE TABLET BY MOUTH EVERY DAY SOLD: 08/11/2020 [facility] 100 mg 03/17/2020 12:00:00 AM EDT tablet 18 TAKE ONE TABLET BY MOUTH PRIOR TO SEX DIRECTED TAKE ONE TABLET BY MOUTH PRIOR TO SEX DIRECTED SOLD : 12/19/2020 [facility] 100 mg 03/17/2020 12:00:00 AM EDT tablet 18 TAKE ONE TABLET BY MOUTH PRIOR TO SEX DIRECTED TAKE ONE TABLET BY MOUTH PRIOR TO SEX DIRECTED SOLD : 11/10/2020 [facility] 100 mg 03/17/2020 12:00:00 AM EDT tablet 18 TAKE ONE TABLET BY MOUTH PRIOR TO SEX DIRECTED TAKE ONE TABLET BY MOUTH PRIOR TO SEX DIRECTED SOLD : 06/01/2020 [facility] 100 mg 03/17/2020 12:00:00 AM EDT tablet 18 TAKE ONE TABLET BY MOUTH PRIOR TO SEX DIRECTED TAKE ONE TABLET BY MOUTH PRIOR TO SEX DIRECTED SOLD : 09/10/2020 [facility] 100 mg 03/17/2020 12:00:00 AM EDT tablet 18 TAKE ONE TABLET BY MOUTH PRIOR TO SEX DIRECTED TAKE ONE TABLET BY MOUTH PRIOR TO SEX DIRECTED SOLD : 08/11/2020 [facility] 100 mg 03/17/2020 12:00:00 AM EDT tablet 18 TAKE ONE TABLET BY MOUTH PRIOR TO SEX DIRECTED TAKE ONE TABLET BY MOUTH PRIOR TO SEX DIRECTED SOLD : 07/11/2020 [facility] sildenafil 100 MG Oral Tablet Sildenafil Citrate 12/26/2019 12:00:00 AM EDT ORAL completed [facility] ([facility] [place] sildenafil 100 MG Oral Tablet Sildenafil Citrate 12/26/2019 12:00:00 AM EDT ORAL completed [facility] ([facility] [place]) Insurance Providers Payer name Policy type / Coverage type Policy ID Covered alliance party ID Covered alliance party's relationship to paz Policy Paz Plan Information [employer] DIRECT PCP [id number] Patient is Ins ured [id number] EXCELLUS I [id number] Self [id number] EXCELLUS I [id number] Self [id number] [place] F [id number] SELF [id number] [place] F [id number] SELF [id number] [place] F [id number] SELF [id number] [place] F [id number] SELF 7 [id number] [place] [employer] F [id number] SELF [id number] ERNESTO [id number] SP [id number] ERNESTO [id number] SP [id number] ANSI-Medicaid [id number] ANSI-Commercial [id number] ANSI-Commercial [id number] ERNESTO [id number] SP [id number] [place] O [id number] S [id number] [facility] [id number] [facility] [id number] Problems, Conditions, and Diagnoses Code Display Name Description Problem Type Effective Dates Data Source(s) L56.8 [id number] Photosensitivity Problem 06/09/2021 12:00:00 AM EDT eCW1 ([facility]) F17.210 [id number] Cigarette nicotine dependence without com plication Problem 06/09/2021 12:00:00 AM EDT eCW1 ([facility]) [id number] Essential hypertension Essential hypertension Problem 03/08/2021 12:00:00 AM EDT MEDENT ([facility], ) N52.9 [id number] Erectile dysfunction, unspecifie d erectile dysfunction type Problem 02/10/2021 12:00:00 AM EDT eCW1 ([facility]) G89.29 [id number] Other chronic pain Problem 02/10/2021 12:00: 00 AM EDT eCW1 ([facility]) I10 [id number] Essential hypertension Problem 02/10/2021 12 :00:00 AM EDT eCW1 ([facility]) N52.03 Vasculopathic erectile dysfunction Vasculopathic erectile dysfunction Problem 01/20/2021 12:00:00 AM EDT MED[facility] ([facility]) K21.9 [id number] GERD without esophagitis Problem 08/23/2020 12:00:00 AM EST eCW1 ([facility]) E78.2 [id number] Mixed hyperlipidemia Problem 08/23/2020 12:0 0:00 AM EST eCW1 ([facility]) I10 [id number] Essential hypertension Problem 08/23/2020 12 :00:00 AM EST eCW1 ([facility]) N52.03 Vasculopathic erectile dysfunction Vasculopathic erectile dysfunction Problem 06/03/2020 12:00:00 AM EDT MED[facility] ([facility]) Surgeries/Procedures Procedure Description Date Indications Data Source(s)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 ([facility]) Smoking 06/09/2021 12:00:00 AM EDT Current Smoker completed Curre nt Smoker eCW1 ([facility]) Smoking 06/09/2021 12:00:00 AM EDT Current Smoker completed Curre nt Smoker eCW1 ([facility]) Smoking 02/10/2021 12:00:00 AM EDT Current Smoker completed Curre nt Smoker eCW1 ([facility]) Smoking 02/10/2021 12:00:00 AM EDT Current Smoker completed Curre nt Smoker eCW1 ([facility]) Smoking 02/10/2021 12:00:00 AM EDT Current Smoker completed Curre nt Smoker eCW1 ([facility]) Smoking 02/10/2021 12:00:00 AM EDT Current Smoker completed Curre nt Smoker eCW1 ([facility]) Smoking 08/23/2020 12:00:00 AM EST Current Smoker completed Curre nt Smoker eCW1 ([facility]) Smoking 08/23/2020 12:00:00 AM EST Current Smoker completed Curre nt Smoker eCW1 ([facility]) Smoking 08/23/2020 12:00:00 AM EST Current Smoker completed Curre nt Smoker eCW1 ([facility]) Smoking 08/23/2020 12:00:00 AM EST Current Smoker completed Curre nt Smoker eCW1 ([facility]) Smoking 08/23/2020 12:00:00 AM EST Current Smoker completed Curre nt Smoker eCW1 ([facility]) Vital Signs ID Date Data Source [id number] Name Value Range Interpretation Code Description Data Source(s) Body weight 181 [lb_av] 181 [lb_av] eCW1 ([facility]) Respiratory rate 18 /min 18 /min eCW1 ([facility]) Body temperature 97.2 [degF] 97.2 [degF] eCW1 ( [facility]) Systolic blood pressure 140 mm[Hg] 140 mm[Hg] e CW1 ([facility]) Body mass index (BMI) [Ratio] 25.24 kg/m2 25.24 kg/m2 eCW1 ([facility]) Heart rate 77 /min 77 /min eCW1 ([facility]) Body height 71 [in_i] 71 [in_i] eCW1 ([facility]) Diastolic blood pressure 84 mm[Hg] 84 mm[Hg] eCW1 ([facility]) Heart rate 84 /min 84 /min [facility] ([facility] [place]) Systolic blood pressure 150 mm[Hg] 150 mm[Hg] M EDENT ([facility] [place]) Diastolic blood pressure 90 mm[Hg] 90 mm[Hg] [facility] ([facility] [place]) Respiratory rate 18 /min 18 /min [facility] ( [facility] [place]) Body temperature 97.8 [degF] 97.8 [degF] [facility] ([facility] [place]) Body temperature 96.9 [degF] 96.9 [degF] MED[facility] ([facility], ) Body temperature 97.3 [degF] 97.3 [degF] [facility] ([facility], ) Body weight 181 [lb_av] 181 [lb_av] eCW1 ([facility]) Body height 71 [in_i] 71 [in_i] eCW1 ([facility]) Body mass index (BMI) [Ratio] 25.24 kg/m2 25.24 kg/m2 eCW1 ([facility]) Heart rate 78 /min 78 /min eCW1 ([facility]) Respiratory rate 18 /min 18 /min eCW1 ([facility]) Body temperature 98.1 [degF] 98.1 [degF] eCW1 ( [facility]) Systolic blood pressure 156 mm[Hg] 156 mm[Hg] e CW1 ([facility]) Diastolic blood pressure 88 mm[Hg] 88 mm[Hg] eCW1 ([facility]) Body temperature 97.9 [degF] 97.9 [degF] [facility] ([facility] [place]) Systolic blood pressure 142 mm[Hg] 142 mm[Hg] M EDENT ([facility] [place]) Diastolic blood pressure 90 mm[Hg] 90 mm[Hg] [facility] ([facility] [place]) Heart rate 72 /min 72 /min [facility] ([facility] [place]) Body temperature 97.9 [degF] 97.9 [degF] [facility] ([facility] [place]) Body temperature 97.0 [degF] 97.0 [degF] eCW1 ( [facility]) Body height 69.7 [in_i] 69.7 [in_i] eCW1 ([facility]) Body height 177.04 cm 177.04 cm eCW1 ([facility]) Body mass index (BMI) [Ratio] 25.57 kg/m2 25.57 kg/m2 eCW1 ([facility]) Oxygen saturation in Arterial blood by Pulse oximetry % eCW1 ([facility]) Systolic blood pressure 164 mm[Hg] 164 mm[Hg] e CW1 ([facility]) Diastolic blood pressure 96 mm[Hg] 96 mm[Hg] eCW1 ([facility]) Body height 68 [in_i] 68 [in_i] [facility] ([facility] [place]) 5'8" Systolic blood pressure 150 mm[Hg] 150 mm[Hg] M EDENT ([facility] [place]) Diastolic blood pressure 89 mm[Hg] 89 mm[Hg] [facility] ([facility] [place]) Heart rate 77 /min 77 /min [facility] ([facility] [place]) Body temperature 97.2 [degF] 97.2 [degF] [facility] ([facility] [place]) Patient Treatment Plan of Care Planned Activity Planned Date Details Description Data Source (s) Pravastatin Sodium 20 MG Oral Tablet 09/20/2020 12:00:00 AM EST eCW1 ([facility]) Pravastatin Sodium 20 MG Oral Tablet 09/20/2020 12:00:00 AM EST eCW1 ([facility]) Pravastatin Sodium 20 MG Oral Tablet 09/20/2020 12:00:00 AM EST eCW1 ([facility]) Pravastatin Sodium 20 MG Oral Tablet 09/20/2020 12:00:00 AM EST eCW1 ([facility])
--- OUTSIDE RECORDS SUMMARY | 2021-07-16 13:59 | CCD ---
Author Author [facility] Organization [facility] Address Unknown Phone Unavailable Care Team Providers Care In Service Educator Name Role Phone Mary Collins Unavailable PROBLEMS Type Condition ICD9-CM Code [id number] Code Onset Dates Condition S tatus W/U Status Risk SNOMED Code Notes Problem Essential hypertension I10 Active confirmed 67160330 Problem Other chronic pain G89.29 Active confirmed 8 [id number] Problem Erectile dysfunction, unspecified erectile dysfunction typ e N52.9 Active confirmed [id number] ALLERGIES No Known Allergies ENCOUNTERS from 1960 to 2021-04-18 Encounter Location Date Provider Diagnosis [id number] [place] [address], Mary Collins IMMUNIZATIONS No Information SOCIAL HISTORY Tobacco Use: Social History Observation Description Date Details (start date - stop date) Current Smoker Sex Assigned At : Social History Observation Description Sex Assigned At Unknown Education: Question Answer Notes Level of Education: College Audit Question Answer Notes Total Score: 4 Interpretation: Alcohol Education Language: Question Answer Notes Languages spoken: Yi Methodist: Question Answer Notes Methodist moravian Sexual Hx: Question Answer Notes Had sex [...] Information RESULTS No Results REASON FOR VISIT ortho referral/2nd opinion MEDICAL (GENERAL) HISTORY Type Description Date [...] Details Provider Name:Mary Collins, 2021-06-09 08:30:00 AM, [address], , [place], [address], Insurance Providers Payer Name Payer Address Payer Phone Insured Name Patient Relati onship to Insured Coverage Start Date Coverage End Date [facility] [employer]POR[facility] CLAIMS DEPT [address] [facility] [phone] MANUEL DAVIS self
--- OUTSIDE RECORDS SUMMARY | 2021-07-16 13:59 | CCD ---
Author Author [facility] Organization [facility] Address Unknown Phone Unavailable Care Team Providers Care Funds Development Director Name Role Phone Mary Collins Unavailable PROBLEMS Type Condition ICD9-CM Code [id number] Code Onset Dates Condition S tatus W/U Status Risk SNOMED Code Notes Problem Essential hypertension I10 Active confirmed [id number] Problem Other chronic pain G89.29 Active confirmed 8 0701406 Problem Erectile dysfunction, unspecified erectile dysfunction typ e N52.9 Active confirmed [id number] ALLERGIES No Known Allergies ENCOUNTERS from 1960 to 2021-04-28 Encounter Location Date Provider Diagnosis [id number] [place] [address] Mar, Mary Collins IMMUNIZATIONS No Information SOCIAL HISTORY Tobacco Use: Social History Observation Description Date Details (start date - stop date) Current Smoker Sex Assigned At : Social History Observation Description Sex Assigned At Unknown Education: Question Answer Notes Level of Education: College Audit Question Answer Notes Interpretation: Alcohol Education Total Score: 4 Language: Question Answer Notes Languages spoken: Romansh Holiness: Question Answer Notes Holiness gnosticist Sexual Hx: Question Answer Notes Had sex in the last 12 months (vaginal, oral, or anal)? Yes Have you ever had an STD? No with Women only Use protection? No Drug and Alcohol Question Answer Notes Interpretation: No problems reported Total Score: 0 Tobacco Use: Question Answer Notes Are you [...] Details Provider Name:Mary Collins, 2021-06-09 08:30:00 AM, [address], , [place], [address], Insurance Providers Payer Name Payer Address Payer Phone Insured Name Patient Relati onship to Insured Coverage Start Date Coverage End Date [facility] CORPORATE CLAIMS DEPT [address] [facility] [phone] MANUEL DAVIS self
[2021-07-16] MEDS ORDERED: ISOVUE-370 76% 100ML VIAL As Ordered ONE (14:34)
[2021-07-16 14:55] LABS: BASO # 0.1 10^3/uL (0.0-0.2); BASO % 0.8 % (0.0-1.0); EOS # 0.3 10^3/uL (0.0-0.5); EOS % 3.1 % (0.0-3.0); HEMATOCRIT 44.1 % (42.0-52.0); HEMOGLOBIN 15.2 g/dl (13.5-17.5); LYMPH # 2.4 10^3/uL (1.5-5.0); LYMPH % 25.9 % (24.0-44.0); MEAN CORPUSCULAR HEMOGLOBIN 32.8 pg (27.0-33.0); MEAN CORPUSCULAR HGB CONC 34.5 g/dl (32.0-36.5); MONO # 0.5 10^3/uL (0.0-0.8); MONO % 5.8 % (2.0-8.0); NEUTROPHILS # 5.9 10^3/uL (1.5-8.5); PLATELET COUNT, AUTOMATED 207 10^3/uL (150-450); RED BLOOD COUNT 4.64 10^6/uL (4.30-6.10); WHITE BLOOD COUNT 9.1 10^3/uL (4.0-10.0)
--- NOTE | 2021-07-16 15:00 | REP ---
INDICATION: trauma; left lateral rib/chest wall pain COMPARISON: None TECHNIQUE: Axial contrast enhanced images from the thoracic inlet to the upper abdomen with coronal and sagittal reformations using 75 ml Isovue 370 intravenous contrast material. This CT examination was performed using the following dose reduction techniques: Automated exposure control, adjustment of mA and/or kv according to the patient's size, and use of iterative reconstruction technique. FINDINGS: Bilateral lung vasques are well aerated and symmetric. No consolidation/contusion, effusion, or pneumothorax. Tracheobronchial tree is patent. No adenopathy. Mediastinum demonstrates relatively normal thoracic aorta, pulmonary vasculature, and heart/pericardium. No evidence for mediastinal injury. The osseous structures suggest an extremely subtle nondisplaced fracture along the lateral aspect of the left 6th rib (series 401; image 61). IMPRESSION: 1. Possible very subtle nondisplaced fracture along the lateral aspect left 6th rib. 2. No further acute mediastinal or pleuroparenchymal trauma/injury or pathology. <Electronically signed by Yury Parker > 07/16/21 [id number]
--- NOTE | 2021-07-16 15:03 | REP ---
INDICATION: trauma COMPARISON: None. TECHNIQUE: Axial noncontrast images from the skull base to the thoracic inlet with coronal and sagittal re-formations This CT examination was performed using the following dose reduction techniques: Automated exposure control, adjustment of mA and/or kv according to the patient's size, and use of iterative reconstruction technique. FINDINGS: Straightening of normal lordosis is nonspecific. Advanced multilevel degenerative changes include endplate sclerosis, disc space narrowing and osteophytosis primarily involving C4-5 through C6-7. Posterior elements and spinous processes are intact. There is no evidence for acute fracture or/compression injury or subluxation. Spinal canal is patent. IMPRESSION: 1. No evidence for acute fracture/compression injury. 2. Moderate multilevel degenerative spondylosis. <Electronically signed by Yury Parker > 07/16/21 1365
--- NOTE | 2021-07-16 15:04 | REP ---
INDICATION: trauma; left elbow pain COMPARISON: None. TECHNIQUE: AP, lateral, bilateral oblique views of the left elbow. FINDINGS: A small and possibly fractured osteophyte along the olecranon process at the posterior elbow requires correlation. Remainder of the examination is age-appropriate and within normal limits. IMPRESSION: Posterior osteophyte possibly fractured requires correlation. <Electronically signed by Yury Parker > 07/16/21 1500
--- NOTE | 2021-07-16 15:06 | REP ---
INDICATION: trauma; to include sacral spine please. COMPARISON: None. TECHNIQUE: Axial noncontrast images of the lumbosacral spine from mid T12 through mid sacrum with coronal and sagittal reformations. This CT examination was performed using the following dose reduction techniques: Automated exposure control, adjustment of mA and/or kv according to the patient's size, and use of iterative reconstruction technique. FINDINGS: Alignment and lordosis maintained. Vertebral bodies are intact. Posterior elements and spinous processes are intact. There is no evidence for acute fracture/compression injury or subluxation. The spinal canal is patent. The paravertebral soft tissues are normal. There is mild multilevel degenerative changes including marginal spurring, minimal disc space narrowing and facet arthropathy with small suspected posterior disc bulges. IMPRESSION: Relatively mild multilevel degenerative changes. No evidence for acute fracture/compression injury or subluxation. <Electronically signed by Yury Parker > 07/16/21 2614
--- OUTSIDE RECORDS SUMMARY | 2021-07-16 15:15 | CCD ---
Author Author [facility] Organization [facility] Address Unknown Phone Unavailable Care Team Providers Care Computer Aide Name Role Phone CHAVEZ, Hamdi Bahgat PA [...] Unavailable TATYANA, F VIKAS KERN Unavailable Unavailable TATYANA F VIKAS KERN Unavailable Unavailable TATYANA F VIKAS Unavailable Unavailable TATYANA F VIKAS Unavailable Unavailable TATYANA F VIKAS Unavailable Unavailable TATYANA, F VIKAS MD Unavailable Unavailable TATYANA, F VIKAS Unavailable Unavailable TATYANA F VIKAS KERN Unavailable Unavailable TATYANA F VIKAS KERN Unavailable Unavailable TATYANA F VIKAS KERN Unavailable Unavailable TATYANA F VIKAS Unavailable Unavailable TATYANA F VIKAS MD Unavailable Unavailable TATYANA, F VIKAS MD Unavailable Unavailable TATYANA F VIKAS KERN Unavailable Unavailable TATYANA F VIKAS Unavailable Unavailable TATYANA F VIKAS Unavailable Unavailable TATYANA F VIKAS Unavailable Unavailable TATYANA F VIKAS KERN Unavailable Unavailable TATYANA F VIKAS Unavailable Unavailable TATYANA F VIKAS Unavailable Unavailable TATYANA F VIKAS Unavailable Unavailable TATYANA F VIKAS Unavailable Unavailable TATYANA F VIKAS Unavailable Unavailable TATYANA F VIKAS MD Unavailable Unavailable TATYANA, F VIKAS Unavailable Unavailable TATYANA F VIKAS Unavailable Unavailable TATYANA F VIKAS Unavailable Unavailable TATYANA F VIKAS Unavailable Unavailable TATYANA F VIKAS Unavailable Unavailable TATYANA F VIKAS Unavailable Unavailable TATYANA F VIKAS Unavailable Unavailable TATYANA F VIKAS Unavailable Unavailable TATYANA F VIKAS Unavailable Unavailable TATYANA F VIKAS Unavailable Unavailable TATYANA F VIKAS Unavailable Unavailable TATYANA F VIAKS Unavailable Unavailable TATYANA F VIKAS Unavailable Unavailable TATYANA F VIKAS Unavailable Unavailable TATYANA F VIKAS Unavailable Unavailable TATYANA, F VIKAS KERN Unavailable [...] Unavailable TATYANA, F VIKAS KERN Unavailable Unavailable MARTY (JENKINS), N STUART RPA-C [...] Unavailable Mollison, Lupillo Cartagena MD Unavailable Unavailable Lupillo Lim MD Unavailable Unavailable MolluLpillo bedoya MD Unavailable Unavailable MollLupillo bedoya MD Unavailable Unavailable MollisonLupilol MD Unavailable Unavailable MollisonLupillo MD Unavailable Unavailable MollisonLupillo MD Unavailable Unavailable MollisonLupillo MD Unavailable Unavailable Lupillo Lim MD Unavailable Unavailable Lupillo Lim MD Unavailable Unavailable MollisonLupillo MD Unavailable Unavailable MollisonLupillo MD Unavailable Unavailable Mollison, Lupillo Cartagena MD Unavailable Unavailable Mollison, Lupillo Cartagena MD Unavailable Unavailable MollisonLupillo MD Unavailable Unavailable CALDERON, L TR PA [...] Unavailable CALDERON, L TR PA Unavailable Unavailable Schnaozzie, S Rob Unavailable Unavailable [...] is protected by Article 27-F of the [facility] Public Health law. If you continue you may have access to information: Regarding HIV / AIDS; Provided by facilities licensed or operated by the [facility] Office of Mental Health; or Provided by the [facility] Office for People With Developmental Disabilities. If such information is present, then the following [facility] mandated warning applies: This information has [...] law may result in a fine or assisted sentence or both. A general authorization for the release of medical or other information is NOT sufficient authorization for further disc losure. Encounters Encounter Providers Location Date Indications Data Source(s ) Unknown [address] [facility] [address] 07/13/2021 12:00:00 AM EDT eCW1 ([facility]) Outpatient Attender: VIKAS COHN MDReferrer: STUART SOT[place]IA ( [place] [facility] 07/12/2021 12:19:31 PM EDT [facility] Recurring Patient Attender: VIKAS COHN MDReferrer: STUART SOTOCIA ([place] 07/12/2021 09:36:59 AM EDT [facility] Recurring Patient Attender: VIKAS DUNCANeferrer: STUART FERGUSON ([place] 07/12/2021 09:32:25 AM EDT [facility] Recurring Patient Attender: VIKAS COHN MDReferrer: STUART FERGUSON ([place] 07/08/2021 02:14:40 PM EDT [facility] Recurring Patient Attender: VIKAS COHN MDReferrer: STUART FERGUSON ([place] 06/24/2021 03:05:06 PM EDT [facility] Recurring Patient Referrer: STUART FERGUSON ([place]) [facility] 06/14/2021 10:10:30 AM EDT [facility] [place] [address] [facility] [address] 06/14/2021 12:00:00 AM EDT eCW1 ([facility]) Recurring Patient Referrer: STUART FERGUSON ([place] 06/13/2021 04:37:28 PM EDT [facility] [place] [address] [facility] [address] 06/09/2021 12:00:00 AM EDT eCW1 ([facility]) Outpatient Attender: Laure New/ Linh Uro logy 06/08/2021 02:00:00 PM EDT [facility] [place] [address] [facility] [address] 05/24/2021 12:00:00 AM EDT eCW1 [facility] [place] [address] [facility] [address] 04/26/2021 12:00:00 AM EDT eCW1 ([facility]) [place] [address] [facility] [address] 04/18/2021 12:00:00 AM EDT eCW1 ([facility]) [place] [address] [facility] [address] 04/14/2021 12:00:00 AM EDT eCW1 ([facility]) Outpatient Attender: Osiel Burks/Marck/Kurt/Re indl 04/01/2021 10:00:00 AM EDT MEDENT ([facility], ) Outpatient Attender: Osiel Burks/Marck/Kurt/Re indl 03/08/2021 10:30:00 AM EDT MEDENT ([facility] ) [place] [address] [facility] [address] 02/10/2021 12:00:00 AM EDT eCW1 ([facility]) Outpatient Attender: Rob New/ Linh Urology 0 01/20/2021 09:15:00 AM EDT MEDENT ([facility]) Outpatient [address] [place], [place] [address] 01/18/2021 12:00:00 AM EDT eCW1 ([facility]) Outpatient [address] [place], [place] [address] 10/20/2020 12:00:00 AM EST eCW1 ([facility]) Outpatient [address] [place], [place] [address] 10/12/2020 12:00:00 AM EST eCW1 ([facility]) Outpatient Attender: Rob New/ JodieP. Urology 1 11/28/2019 08:30:00 AM EST [facility] [address] [place], [place] [address] 09/20/2020 12:00:00 AM EST eCW1 ([facility]) Outpatient [address] [place], [place] [address] 08/23/2020 12:00:00 AM EST eCW1 ([facility]) Outpatient Attender: Rob New/ JodiePJulita Urology 1 10/09/2019 09:15:00 AM EST MEDENT ([facility]) Outpatient Attender: Rob New/ SunithaMClare Urology 0 06/14/2020 10:45:00 AM EDT [facility] ([facility]) Outpatient Attender: Laure New/ Linh Uro logy 06/03/2020 08:40:00 AM EDT [facility] ([facility]) Recurring Patient Referrer: TR PETERSON 05/24/2020 10: 39:48 AM EDT [facility] Medications Medication Brand Name Start [...] 09/28/2020 12:00:00 AM EST ORAL completed MEDENT ([facility]) tadalafil 20 MG Oral Tablet Tadalafil 09/27/2020 12:00:00 AM EST ORAL active MED[facility] ([facility]) Pravastatin Sodium 20 MG Oral Tablet Pravastatin Sodium 20 M G 09/20/2020 12:00:00 AM EST 1.0 {tab(s)} active Pr avastatin Sodium 20 MG eCW1 ([facility]) Pravastatin Sodium 20 MG Oral Tablet Pravastatin Sodium 20 M G 09/20/2020 12:00:00 AM EST 1.0 {tab(s)} active Pr avastatin Sodium 20 MG eCW1 ([facility]) Pravastatin Sodium 20 MG Oral Tablet Pravastatin Sodium 20 M G 09/20/2020 12:00:00 AM EST 1.0 {tab(s)} active Pr avastatin Sodium 20 MG eCW1 ([facility]) Pravastatin Sodium 20 MG Oral Tablet Pravastatin Sodium 20 M G 09/20/2020 12:00:00 AM EST 1.0 {tab(s)} active Pr avastatin Sodium 20 MG eCW1 ([facility]) 0.4 mg 08/10/2020 12:00:00 AM EST capsule 30 TAKE ONE CAPSULE BY MOUTH EVERY DAY 30 MINUTES AFTER DINNER TAKE ONE CAPSULE BY MOUTH EVERY DAY 30 M INUTES AFTER DINNER SOLD: 08/11/2020 [facility] Tamsulosin hydrochloride 0.4 MG Oral Capsule [Flomax] Flomax 08/09/2020 12:00:00 AM EST active [facility]) tadalafil 5 MG Oral Tablet Tadalafil 06/14/2020 12:00:00 AM EDT ORAL completed [facility]) 10 mg 04/01/2020 12:00:00 AM [...] AM EDT ORAL completed [facility] ([facility]) sildenafil 100 MG Oral Tablet Sildenafil Citrate 12/26/2019 12:00:00 AM EDT ORAL completed MEDENT ([facility] [place]) Insurance Providers Payer name Policy type / Coverage type Policy ID Covered republican ID Covered republican's relationship to paz Policy Paz Plan Information [employer] CARE DIRECT PCP [id number] Patient is Ins ured [id number] EXCELLUS I [id number] Self [id number] EXCELLUS I [id number] Self [id number] [place] F [id number] SELF [id number] [place] Medicaid [id number] SELF [id number] [place] F [id number] SELF 7 [id number] [place] F [id number] SELF [id number] [place] F [id number] SELF 7 [id number] ANSI-Commercial [id number] [facility] [id number] [facility] [id number] DONELL [id number] SP [id number] DONELL [id number] SP [id number] [facility] [place] O [id number] S [id number] DONELL [id number] SP [id number] [place] NO FAULT [id number] SP [id number] ANSI-Medicaid [id number] ANSI-Commercial [id number] Problems, Conditions, and Diagnoses Code Display Name Description Problem Type Effective Dates Data Source(s) L56.8 [id number] Photosensitivity Problem 06/09/2021 12:00:00 AM EDT eCW1 ([facility]) F17.210 [id number] Cigarette nicotine dependence without com plication Problem 06/09/2021 12:00:00 AM EDT eCW1 ([facility]) 44421057 Essential hypertension Essential hypertension Problem 03/08/2021 12:00:00 AM EDT MEDENT ([facility], ) N52.9 [id number] Erectile dysfunction, unspecifie d erectile dysfunction type Problem 02/10/2021 12:00:00 AM EDT eCW1 ([facility]) G89.29 [id number] Other chronic pain Problem 02/10/2021 12:00: 00 AM EDT eCW1 ([facility]) I10 [id number] Essential hypertension Problem 02/10/2021 12 :00:00 AM EDT eCW1 ([facility]) N52.03 Vasculopathic erectile dysfunction Vasculopathic erectile dysfunction Problem 01/20/2021 12:00:00 AM EDT [facility] ([facility]) K21.9 [id number] GERD without esophagitis Problem 08/23/2020 12:00:00 AM EST eCW1 ([facility]) E78.2 [id number] Mixed hyperlipidemia Problem 08/23/2020 12:0 0:00 AM EST eCW1 ([facility]) I10 [id number] Essential hypertension Problem 08/23/2020 12 :00:00 AM EST eCW1 ([facility]) N52.03 Vasculopathic erectile dysfunction Vasculopathic erectile dysfunction Problem 06/03/2020 12:00:00 AM EDT [facility] ([facility]) Surgeries/Procedures Procedure Description Date Indications Data Source(s) ECG ROUTINE ECG W/LEAST 12 LDS W/I&R 06/09/2021 12:00: 00 AM EDT eCW1 ([facility]) OFFICE OUTPATIENT VISIT 25 MINUTES 06/08/2021 12:00:00 AM EDT [facility] ([facility] OFFICE OUTPATIENT VISIT 25 MINUTES 04/01/2021 12:00:00 AM EDT MEDENT ([facility], ) OFFICE OUTPATIENT NEW 45 MINUTES 03/08/2021 12:00:00 A M EDT MEDENT ([facility], ) MARIA DE JESUS POST-VOIDING RESIDUAL URINE&/BLDR CAP 01/20/2021 12:00:00 AM EDT MED[facility] ([facility]) OFFICE OUTPATIENT VISIT 15 MINUTES 01/20/2021 12:00:00 AM EDT [facility] ([facility]) NJX C/P/A CAVERNOSA W/PHARMACOLOGIC AGT 06/03/2020 12: 00:00 AM EDT [facility] ([facility]) Duplex Scan Of Arterial Inflow And Venous Outflow Of Penile- Globa 06/03/2020 12:00:00 AM EDT [facility] Results ID Date Data Source [id number] 07/12/2021 12:19:31 PM EDT [facility] PCName: Don CharlesAntonioB: 1960Provider: Magdaleno Cohn: 07/12/2021 Reason For VisitJosetawanna Evangelista is here today for right shoulder. Don has not had the Covid vaccine. Don Evangelista is a new patient and Don Evangelista is here for a second opinion. Surgery DOS: [phone] per patient. Surgery Description: right shoulder scope. Patient states their pain is a 10 out of 10. 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 PlanHPI:This 60-year-old new patient is here for a second opinion regarding his right shoulder.According to the patient, he had right shoulder surgery to repair a tear. This was done at [facility] 13 or 14 years ago. [...] rce(s) Supporting Document(s) ID Date Data Source [id number] 06/08/2021 02:42:00 PM EDT [facility] ([facility]) Name Value Range Interpretation Code Description Data Samara rce(s) Supporting Document(s) Glucose [Presence] in Urine Laboratory test result [facility] ([facility]) Ua Nitrite Laboratory test result ME DENT ([facility]) Protein [Presence] in Urine by Test strip Laboratory test result [facility] ([facility]) Ua Leuko Laboratory test result ME DENT ([facility]) Color of Urine Laboratory test result [facility] ([facility]) Blood [Presence] in Urine by Visual Laboratory test result [facility] ([facility]) Ketones [Presence] in Urine by Test strip Laboratory test result [facility] ([facility]) Clarity of Urine Laboratory test result [facility] ([facility]) pH of Urine by Test strip 6.5 5.0-7.5 [facility] ([facility]) Ua Specific [place] Laboratory test result 1.003-1.030 [facility] ([facility]) Urobilinogen [Mass/volume] in Urine by Test strip 1.0 E.U./dL 0.0-1.0 [facility] ([facility]) Bilirubin.total [Presence] in Urine by Test strip Laboratory test res ult [facility] ([facility]) ID Date Data Source [id number] 06/01/2021 10:02:00 AM EDT [facility] ([facility]) Name Value Range Interpretation Code Description Data Samara rce(s) Supporting Document(s) Prostate specific Ag [Mass/volume] in Serum or Plasma 0.39 ng/mL 0.00 -4.10 MED[facility] ([facility]) ID Date Data Source [id number] 01/20/2021 09:33:00 AM EDT [facility] ([facility]) Name Value Range Interpretation Code Description Data Samara rce(s) Supporting Document(s) Glucose [Presence] in Urine Laboratory test result [facility] ([facility]) Ua Nitrite Laboratory test result ME DENT ([facility] [place]) Protein [Presence] in Urine by Test strip Laboratory test result [facility] ([facility]) Ua Leuko Laboratory test result ME DENT ([facility]) Blood [Presence] in Urine by Visual Laboratory test result [facility] ([facility]) Color of Urine Laboratory test result [facility] ([facility]) Ketones [Presence] in Urine by Test strip Laboratory test result [facility] ([facility]) Ua Specific [place] Laboratory test result 1.003-1.030 [facility] ([facility]) Clarity of Urine Laboratory test result [facility] ([facility]) pH of Urine by Test strip 5.0 5.0-7.5 [facility] ([facility]) Bilirubin.total [Presence] in Urine by Test strip Laboratory test res ult [facility] ([facility]) Urobilinogen [Mass/volume] in Urine by Test strip 0.2 E.U./dL 0.0-1.0 [facility] ([facility]) ID Date Data Source CBC (INCLUDES DIFF/PLT) 08/23/2020 12:00:00 AM EST eCW1 ([facility]) Name Value Range Interpretation Code Description Data Samara rce(s) Supporting Document(s) Leukocytes [#/volume] in Blood by Automated count 7.7 3.8- 10.8 WHITE BLOOD CELL COUNT eCW1 ([facility]) Erythrocytes [#/volume] in Blood by Automated count 4.55 4. 20-5.80 RED BLOOD CELL COUNT eCW1 ([facility]) Hemoglobin [Mass/volume] in Blood 15.2 13.2-17.1 HE MOGLOBIN eCW1 ([facility]) Hematocrit [Volume Fraction] of Blood by Automated count 44.1 38.5-50.0 HEMATOCRIT eCW1 ([facility]) Erythrocyte mean corpuscular hemoglobin [Entitic mass] by Au tomated count 33.4 27.0-33.0 MCH eCW1 ([facility]) Erythrocyte mean corpuscular volume [Entitic volume] by Auto mated count 96.9 80.0-100.0 MCV eCW1 ([facility]) Erythrocyte distribution width [Ratio] by Automated count 12.7 11.0-15.0 RDW eCW1 ([facility]) Platelet mean volume [Entitic volume] in Blood by Skye 11.0 7.5-12.5 MPV eCW1 ([facility]) Platelets [#/volume] in Blood by Automated count 212 140-400 PLATELET COUNT eCW1 ([facility]) Erythrocyte mean corpuscular hemoglobin concentration [Mass/volume] by Automated count 34.5 32.0-36.0 MCHC eCW1 ([facility]) Eosinophils [#/volume] in Blood by Automated count 123 15- 500 ABSOLUTE EOSINOPHILS eCW1 ([facility]) Lymphocytes [#/volume] in Blood by Automated count 2564 850 -3900 ABSOLUTE LYMPHOCYTES eCW1 ([facility]) Neutrophils [#/volume] in Blood by Automated count 4435 150 0-7800 ABSOLUTE NEUTROPHILS eCW1 ([facility]) Monocytes [#/volume] in Blood by Automated count 516 200-9 50 ABSOLUTE MONOCYTES eCW1 ([facility]) Monocytes/100 leukocytes in Blood by Automated count 6.7 0-13 MONOCYTES eCW1 ([facility]) Lymphocytes/100 leukocytes in Blood by Automated count 33.3 15- 49 LYMPHOCYTES eCW1 ([facility]) Neutrophils/100 leukocytes in Blood by Automated count 57.6 38- 80 NEUTROPHILS eCW1 ([facility]) Basophils [#/volume] in Blood by Automated count 62 0-200 ABSOLUTE BASOPHILS eCW1 ([facility]) Basophils/100 leukocytes in Blood by Automated count 0.8 0-2 BASOPHILS eCW1 ([facility]) Eosinophils/100 leukocytes in Blood by Automated count 1.6 0-8 EOSINOPHILS eCW1 ([facility]) ID Date Data Source BASIC METABOLIC PANEL 08/23/2020 12:00:00 AM EST eCW1 ([facility]) Name Value Range Interpretation Code Description Data Samara rce(s) Supporting Document(s) Glucose [Mass/volume] in Serum or Plasma 87 65-139 GLUCOSE eCW1 ([facility]) Glomerular filtration rate/1.73 sq M.pre dicted [Volume Rate/Area] in Serum, Plasma or Blood by Creatinine-based formula (MDRD) 89 > OR = 60 eGFR NON-AFR. ENGLISH eCW1 ([facility]) Urea nitrogen [Mass/volume] in Serum or Plasma 17 7-25 UREA NITROGEN (BUN) eCW1 ([facility]) Glomerular filtration rate/1.73 sq M pre dicted among blacks [Volume Rate/Area] in Serum or Plasma by Creatinine-based formula (MDRD) 104 > OR = 60 eGFR eCW1 ([facility]) Creatinine [Mass/volume] in Serum or Plasma 0.92 0.70-1.25 CREATININE eCW1 ([facility]) Sodium [Moles/volume] in Serum or Plasma 137 135-146 SODIUM eCW1 ([facility]) Potassium [Moles/volume] in Serum or Plasma 4.3 3.5-5.3 POTASSIUM eCW1 ([facility]) Urea nitrogen/Creatinine [Mass Ratio] in Serum or Plasma NOT APPLIC ABLE 6-22 BUN/CREATININE RATIO eCW1 ([facility]) Calcium [Mass/volume] in Serum or Plasma 9.6 8.6-10.3 CALCIUM eCW1 ([facility]) Chloride [Moles/volume] in Serum or Plasma 103 98-110 CHLORIDE eCW1 ([facility]) Carbon dioxide, total [Moles/volume] in Serum or Plasma 24 20-32 CARBON DIOXIDE eCW1 ([facility]) ID Date Data Source - Blood Draw Venipuncture 08/23/2020 12:00:00 AM EST eCW1 ([facility]) Name Value Range Interpretation Code Description Data Samara rce(s) Supporting Document(s) - Blood Draw Venipuncture eCW1 ([facility]) ID Date Data Source [id number] 08/24/2020 02:16:00 PM EST [facility] FASTING: NOReceived: 08/24/2020 at 09:48 :00 QPT: [facility], [address], [address] [place] [address], [phone], Hang Mdeel MD Received: 08/24/2020 at 09:48:00 QPT : [facility], [address], [address] [place], [phone], Hang Medel MD Received: 08/24/2020 at 09:48:00 QPT : [facility], [address], [address] [place], [phone], Hang Medel MD Name Value Range Interpretation [...] risk factors.LDL-C is now calculated using the Amari-Georgecalculation, which is a validated novel method providingbetter accuracy than the Friedewald equation in theestimation of LDL-C.Amari SS et al. SANTOSH. 2013;310(19): 6991-2867(http://education.LumiG[employer].com/faq/AWT192) Cholesterol.total/Cholesterol in HDL [Mass Ratio] in Serum [...] considered a therapeuticoption. ID Date Data Source [id number] 08/24/2020 02:16:00 PM EST [facility] FASTING: NOReceived: 08/24/2020 at 09:48 :00 QPT: [facility] [place], [address], [address] [place], [phone], Hang Medel MD Received: 08/24/2020 at 09:48:00 QPT : [facility], [address], [address] [place], [phone], Hang Medel MD Received: 08/24/2020 at 09:48:00 QPT : [facility], [address], [address] [place], [phone], Hang Medel MD Name Value Range Interpretation [...] is approximately 13% higher for peopleidentified as -Albanian. Glomerular filtration rate/1.73 sq M.pre dicted [Volume [...] results) [facility] ID Date Data Source [id number] 08/24/2020 02:16:00 PM EST [facility] FASTING: NOReceived: 08/24/2020 at 09:48 :00 QPT: [facility], [address], [address] [place] [address], [phone], Hang Medel MD Received: 08/24/2020 at 09:48:00 QPT : [facility], [address], [address] [place] [address], [phone], Hang Medel MD Received: 08/24/2020 at 09:48:00 QPT : [facility], [address], [address] [place] [address], [phone], Hang Medel MD Name Value Range Interpretation [...] in Blood by Automated count 4435 cells/uL 8095-4781 Normal (applies to non-numeric results) [facility] [...] results) [facility] ID Date Data Source [id number] 08/09/2020 10:05:00 AM SHRUTHI GALLEGOS ([facility] [employer] [employer]) Name Value Range Interpretation Code Description Data Samara rce(s) Supporting Document(s) Glucose [Presence] in Urine Laboratory test result [facility] ([facility] [employer] [facility] [employer]) Protein [Presence] in Urine by Test strip Laboratory test result MEDALEXANDR ([facility] [employer] [facility] [place]) Ua Nitrite Laboratory test result AL COBY ([facility] [employer] [facility]) Blood [Presence] in Urine by Visual Laboratory test result [facility] ([facility] [employer] [facility]) Ua Leuko Laboratory test result ME DENT ([facility] [employer] [facility]) Color of Urine Laboratory test result [facility] ([facility] [employer] [facility]) Ketones [Presence] in Urine by Test strip Laboratory test result [facility] ([facility] [employer] [facility]) Clarity of Urine Laboratory test result [facility] ([facility] [employer] [facility]) Ua Specific [place] Laboratory test result 1.003-1.030 [facility] ([facility] [employer] [facility]) pH of Urine by Test strip 5.5 5.0-7.5 [facility] ([facility] [employer] [facility]) Urobilinogen [Mass/volume] in Urine by Test strip 0.2 E.U./dL 0.0-1.0 [facility] ([facility] [employer] [facility]) Bilirubin.total [Presence] in Urine by Test strip Laboratory test res ult [facility]ENT ([facility] [employer] [facility]) ID Date Data Source [id number] 06/03/2020 11:14:00 AM EDT [facility] ([facility] [facility]) Name Value Range Interpretation Code Description Data Samara rce(s) Supporting Document(s) Penis vessels US.doppler Laboratory test result [facility] ([facility] [employer] [facility]) ID Date Data Source [id number] 06/03/2020 09:30:00 AM EDT [facility] ([facility] [employer] [facility]) Name Value Range Interpretation Code Description Data Samara rce(s) Supporting Document(s) Hemoglobin [Mass/volume] in Blood 15.3 g/dL 13.5-18.0 [facility] ([facility] [employer] [facility]) WBC 6.8 X10*3/uL 4.1-11.0 [facility] ([facility] [employer] [facility]) RBC 4.5 x10*6/Ul 4.6-6.1 [facility] ([facility] [employer] [facility]) Hematocrit [Volume Fraction] of Blood by Automated count 46.3 % 4 1.0-53.0 [facility] ([facility] [employer] [facility]) MCV 103.5 fL 79.9-95.1 [facility] ([facility]) MCH 34.2 pg 27.0-32.0 [facility] ([facility]) MPV 6.8 fL 7.1-10.7 [facility] ([facility]) MCHC 33.1 g/dL 32.0-36.0 [facility] ([facility]) RDW 12.1 % 10.5-14.5 [facility] ([facility]) PLT 180.9 10*3/uL 150.0-450.0 [facility] ([facility] [employer] [facility] [place]) %N 50.2 % 35.0-75.0 [facility] ([facility]) %L 36.9 % 16.0-52.0 [facility] ([facility]) %M 7.1 % 0.0-8.0 [facility] ([facility]) %B 1.6 % 0.0-4.0 [facility] ([facility]) %E 4.3 % 0.0-5.0 [facility] ([facility]) Cassie 3.4 10*3/uL 1.8-7.7 [facility] ([facility] [facility]) Lym 2.5 10*3/uL 1.2-4.8 [facility] ([facility] [facility]) Storey 0.5 10*3/uL 0.0-0.8 [facility] ([facility] [facility]) Baso 0.1 10*3/uL 0.0-0.2 [facility] ([facility] [employer] [facility]) Eos 0.3 10*3/uL 0.0-0.4 [facility] ([facility] [employer] [facility]) ID Date Data Source [id number] 06/03/2020 09:30:00 AM EDT [facility] ([facility] [facility] [place]) Name Value Range Interpretation Code Description Data Samara rce(s) Supporting Document(s) Albumin [Mass/volume] in Serum or Plasma 4.8 g/dL 3.2-4.6 [facility] ([facility] [employer] [facility]) Alkaline phosphatase [Enzymatic activity/volume] in Serum or Plasma 65.0 U/L 45.0-117.0 [facility] ([facility]) Aspartate aminotransferase [Enzymatic activity/volume] in Serum or Plasma 23.0 U/L 11.0-39.0 [facility] ([facility]) Protein [Mass/volume] in Serum or Plasma 7.3 g/dL 6.4-8.3 [facility] ([facility] [employer] [facility]) Alanine aminotransferase [Enzymatic activity/volume] i n Serum or Plasma 26.0 U/L 0.0-55.0 [facility] ([facility]) Globulin 2.5 [facility] ([facility]) Bilirubin.total [Mass/volume] in Serum or Plasma 0.4 mg/dL 0.0-1.2 [facility] ([facility] [employer] [facility]) Bilirubin.direct [Mass/volume] in Serum or Plasma 0.15 mg/dL 0.00-0.5 0 [facility] ([facility] [employer] [facility]) ID Date Data Source [id number] 06/03/2020 09:30:00 AM EDT [facility] ([facility] [employer] [facility]) Name Value Range Interpretation Code Description Data Samara rce(s) Supporting Document(s) Testosterone [Mass/volume] in Serum or Plasma 826.36 ng/dL 300.00-100 0.00 [facility] ([facility] [employer] [facility]) Sex hormone binding globulin [Moles/volume] in Serum or Plas ma 60.40 nmol/L 13.00-90.00 [facility] ([facility]) Bioavailable Testosterone 298.0 ng/dL 131.0-682.0 [facility] ([facility] [employer] [facility]) Reference range is gender specific for a dult males only. Mazin stage appropriate reference ranges have not been established for this methodology. Bioavailable testosterone includes free and weakly bound testosterone. The concentration is derived from a mathematical expression based on the constants for binding of testosterone to SHBG and albumin. Free Testosterone 126.3 pg/mL 46.0-224.0 [facility] ([facility] [facility]) The concentration of free testosterone i s derived from a mathematical expression based on the constant for the binding of testosterone to SHBG. Reference range is gender specific for males only. Mazin stage appropriate reference ranges have not been established for this methodology. ID Date Data Source [id number] 06/03/2020 09:30:00 AM EDT [facility] Name Value Range Interpretation Code Description Data Samara rce(s) Supporting Document(s) Lutropin [Units/volume] in Serum or Plasma 3.5 mlu/mL 0.6-12.1 [facility] ([facility] [employer] [facility]) Male: 0.57-12.07 mIU/mL Female Follicular phase: 1.80-11.78 mIU/mL Mid-cycle peak: 7.59-89.08mIU/mL Luteal phase: 0.56-14.00mIU/ml Postmenopausal without HRT: 5.16-61.99 mIU/mL Follitropin [Units/volume] in Serum or Plasma 2.0 mlu/mL 1.0-12.0 [facility] ([facility] [facility]) Female FSH range Follicular phase 3.03-8.08 Mid-cycle peak 2.55-16.69 Luteal phase 1.38-5.47 Postmenopausal 26.72-133.41 Estradiol (E2) [Mass/volume] in Serum or Plasma 28.0 pq/mL 11.0-44.0 [facility] ([facility] [employer] [facility]) follicullar 21-251 mid-cycle 38-649 luteal phase 21-312 postmenopausal w/o hrt 10-28 postmenopausal w hrt 10-144 Prolactin [Mass/volume] in Serum or Plasma 4.190 ng/mL 3.460-19.400 [facility] ([facility] [employer] [facility]) ID Date Data Source [id number] 06/03/2020 09:30:00 AM EDT [facility] [employer]) Name Value Range Interpretation Code Description Data Samara rce(s) Supporting Document(s) Prostate specific Ag [Mass/volume] in Serum or Plasma 0.45 ng/mL 0.00 -4.00 [facility] ([facility] [employer] [facility]) Procedure Social History Code Duration Value Status Description Data Source(s ) Smoking 06/09/2021 12:00:00 AM EDT Current Smoker completed Curre nt Smoker eCW1 ([facility]) Smoking 06/09/2021 12:00:00 AM EDT Current Smoker completed Curre nt Smoker eCW1 ([facility]) Smoking 06/09/2021 12:00:00 AM EDT Current Smoker completed Curre nt Smoker eCW1 ([facility]) Smoking 06/09/2021 12:00:00 AM EDT Current Smoker completed Curre nt Smoker eCW1 ([facility]) Smoking 02/10/2021 12:00:00 AM EDT Current Smoker completed Curre nt Smoker eCW1 ([facility]) Smoking 02/10/2021 12:00:00 AM EDT Current Smoker completed Curre nt Smoker eCW1 ([facility]) Smoking 02/10/2021 12:00:00 AM EDT Current Smoker completed Curre nt Smoker eCW1 ([facility]) Smoking 02/10/2021 12:00:00 AM EDT Current Smoker completed Curre nt Smoker eCW1 ([facility]) Smoking 08/23/2020 12:00:00 AM EST Current Smoker completed Curre nt Smoker eCW1 ([facility]) Smoking 08/23/2020 12:00:00 AM EST Current Smoker completed Curre nt Smoker eCW1 ([facility]) Smoking 08/23/2020 12:00:00 AM EST Current Smoker completed Curre nt Smoker eCW1 ([facility]) Smoking 08/23/2020 12:00:00 AM EST Current Smoker completed Curre nt Smoker eCW1 ([facility]) Smoking 08/23/2020 12:00:00 AM EST Current Smoker completed Curre nt Smoker eCW1 ([facility]) Vital Signs ID Date Data Source [id number] Name Value Range Interpretation Code Description Data Source(s) Body weight 181 [lb_av] 181 [lb_av] eCW1 ([facility]) Respiratory rate 18 /min 18 /min eCW1 ([facility]) Body temperature 97.2 [degF] 97.2 [degF] eCW1 ( [facility]) Body mass index (BMI) [Ratio] 25.24 kg/m2 25.24 kg/m2 eCW1 ([facility]) Systolic blood pressure 140 mm[Hg] 140 mm[Hg] e CW1 ([facility]) Heart rate 77 /min 77 /min eCW1 ([facility]) Body height 71 [in_i] 71 [in_i] eCW1 ([facility]) Diastolic blood pressure 84 mm[Hg] 84 mm[Hg] eCW1 ([facility]) Diastolic blood pressure 90 mm[Hg] 90 mm[Hg] [facility] ([facility] [facility]) Systolic blood pressure 150 mm[Hg] 150 mm[Hg] M EDENT ([facility] [employer] [facility]) Heart rate 84 /min 84 /min [facility] ([facility] [employer] [facility]) Respiratory rate 18 /min 18 /min [facility] ( [facility] [employer] [facility]) Body temperature 97.8 [degF] 97.8 [degF] [facility] ([facility] [employer] [facility]) Body temperature 96.9 [degF] 96.9 [degF] MED[facility] ([facility], ) Body temperature 97.3 [degF] 97.3 [degF] [facility] ([facility], ) Body weight 181 [lb_av] 181 [lb_av] eCW1 ([facility]) Body height 71 [in_i] 71 [in_i] eCW1 ([facility]) Body mass index (BMI) [Ratio] 25.24 kg/m2 25.24 kg/m2 eCW1 ([facility]) Heart rate 78 /min 78 /min eCW1 ([facility]) Respiratory rate 18 /min 18 /min eCW1 ([facility]) Body temperature 98.1 [degF] 98.1 [degF] eCW1 ( [facility]) Systolic blood pressure 156 mm[Hg] 156 mm[Hg] e CW1 ([facility]) Diastolic blood pressure 88 mm[Hg] 88 mm[Hg] eCW1 ([facility]) Body temperature 97.9 [degF] 97.9 [degF] [facility] ([facility] [employer] [facility]) Systolic blood pressure 142 mm[Hg] 142 mm[Hg] M EDENT ([facility] [employer] [facility] [employer]) Diastolic blood pressure 90 mm[Hg] 90 mm[Hg] [facility] ([facility] [employer] [facility]) Heart rate 72 /min 72 /min [facility] ([facility] [employer] [facility]) Body temperature 97.9 [degF] 97.9 [degF] [facility] ([facility] [employer] [facility]) Body temperature 97.0 [degF] 97.0 [degF] eCW1 ( [facility]) Body height 69.7 [in_i] 69.7 [in_i] eCW1 ([facility]) Body height 177.04 cm 177.04 cm eCW1 ([facility]) Body mass index (BMI) [Ratio] 25.57 kg/m2 25.57 kg/m2 eCW1 ([facility]) Oxygen saturation in Arterial blood by Pulse oximetry % eCW1 ([facility]) Systolic blood pressure 164 mm[Hg] 164 mm[Hg] e CW1 ([facility]) Diastolic blood pressure 96 mm[Hg] 96 mm[Hg] eCW1 ([facility]) Body height 68 [in_i] 68 [in_i] [facility] ([facility] [employer] [facility] [employer]) 5'8" Systolic blood pressure 150 mm[Hg] 150 mm[Hg] M EDENT ([facility] [employer] [facility] [employer]) Diastolic blood pressure 89 mm[Hg] 89 mm[Hg] [facility] ([facility] [employer] [facility] [employer]) Heart rate 77 /min 77 /min [facility] ([facility] [employer] [facility]) Body temperature 97.2 [degF] 97.2 [degF] [facility] ([facility] [employer] [facility] [employer]) Patient Treatment Plan of Care Planned Activity Planned Date Details Description Data Source (s) Pravastatin Sodium 20 MG Oral Tablet 09/20/2020 12:00:00 AM EST eCW1 ([facility]) Pravastatin Sodium 20 MG Oral Tablet 09/20/2020 12:00:00 AM EST eCW1 ([facility]) Pravastatin Sodium 20 MG Oral Tablet 09/20/2020 12:00:00 AM EST eCW1 ([facility]) Pravastatin Sodium 20 MG Oral Tablet 09/20/2020 12:00:00 AM EST eCW1 ([facility])
[2021-07-16] MEDS ORDERED: HYDR-3713 PO (15:24)
[2021-07-16 15:54] VITALS: BP 153/87
== END 2021-07-16 15:54 | disposition home or self-care (01) ==
LOC: M ED 13:49
DX: S22.32XA Fracture of one rib, left side, initial encounter for closed fracture (principal); S30.0XXA Contusion of lower back and pelvis, initial encounter; S50.02XA Contusion of left elbow, initial encounter; V03.00XA Pedestrian on foot injured in collision with car, pick-up truck or van in nontraffic accident, initial encounter; Y92.481 Parking lot as the place of occurrence of the external cause; Y93.9 Activity, unspecified; Y99.9 Unspecified external cause status; I10 Essential (primary) hypertension; F17.200 Nicotine dependence, unspecified, uncomplicated; M25.722 Osteophyte, left elbow; M47.812 Spondylosis without myelopathy or radiculopathy, cervical region; Z79.899 Other long term (current) drug therapy; Z88.1 Allergy status to other antibiotic agents
CPT/HCPCS: 36415; 71260; 72125; 72131; 73080; 80047; 85025; 94010; 99284; Q9967

== ENCOUNTER → 2021-10-21 | Outpatient (CLI) | payer OTHER ==
[~2021-10-21] MED LIST changes: +HYDR-3713 PO
== END ==
LOC: M SOG 14:22
PROVIDERS: ATTEND Orthopaedic Surgery Sports Medicine
DX: S46.011D Strain of muscle(s) and tendon(s) of the rotator cuff of right shoulder, subsequent encounter (principal); M19.011 Primary osteoarthritis, right shoulder; X58.XXXD Exposure to other specified factors, subsequent encounter; Y92.9 Unspecified place or not applicable; Y93.9 Activity, unspecified; Y99.9 Unspecified external cause status

== ENCOUNTER → 2021-11-02 | Outpatient (CLI) | payer OTHER ==
[~2021-11-02] MED LIST changes: +MOTR200T44 PO
== END ==
LOC: M LABSMTC 11:59
PROVIDERS: ATTEND Orthopaedic Surgery Hand Surgery
DX: Z01.812 Encounter for preprocedural laboratory examination (principal); Z20.822 Contact with and (suspected) exposure to COVID-19

== ENCOUNTER → 2021-11-03 | Outpatient (CLI) | payer OTHER | LOC: M ADAMS 14:54 | PROVIDERS: ATTEND Physician Assistant Medical | DX: Z01.818 Encounter for other preprocedural examination (principal); S52.022A Displaced fracture of olecranon process without intraarticular extension of left ulna, initial encounter for closed fracture; X58.XXXA Exposure to other specified factors, initial encounter; Y92.9 Unspecified place or not applicable; Y93.9 Activity, unspecified; Y99.9 Unspecified external cause status; M41.84 Other forms of scoliosis, thoracic region ==

== ENCOUNTER 2021-11-07 06:13 | Day surgery (SDC) | payer OTHER ==
[~2021-11-07] VITALS: Ht 180.3 cm; Wt 78.5 kg
[~2021-11-07 06:13] MED LIST changes: +LIDOCAINE 1% MDV 20ML VIAL SQ PRN; +LR 1,000 ML IV ONE; +ceFAZolin SOD 2 GM in IV 1 EA IV ONE
[2021-11-07] MEDS ORDERED: BUPIVACAINE/EPIN 0.5% 30 ML VIAL As Ordered ONE (07:55)
[2021-11-07] MEDS ORDERED: BACITRACIN OINTMENT 30GM TUBE As Ordered ONE (07:55)
[2021-11-07] MEDS ORDERED: BUPIVACAINE HCL 0.25% 30ML VIAL As Ordered ONE (07:56)
[2021-11-07] MEDS ORDERED: MIDAZOLAM INJ 2MG/2ML VIAL (J2250 PER 1MG) As Ordered ONE (08:26)
[2021-11-07] MEDS ORDERED: LIDOCAINE 2% 100MG/5ML SDV (FOR ANES.) As Ordered ONE (08:26)
[2021-11-07] MEDS ORDERED: KETOROLAC 60MG 2ML VIAL As Ordered ONE (08:26)
[2021-11-07] MEDS ORDERED: ROCURONIUM BROMIDE 50 MG/5 ML VIAL As Ordered ONE (08:26)
[2021-11-07] MEDS ORDERED: ONDANSETRON 4MG/2ML VIAL As Ordered ONE (08:26)
[2021-11-07] MEDS ORDERED: ACETAMINOPHEN 1000MG 100ML IV BTL (OFIRMEV) (J0131 PER 10MG) As Ordered ONE (08:26)
[2021-11-07] MEDS ORDERED: dexameTHASONE 4 MG/ML 1ML VIAL (J1100 PER 1MG) As Ordered ONE (08:26)
[2021-11-07] MEDS ORDERED: SUGAMMADEX SODIUM 500 MG/5 ML VIAL (BRIDION) As Ordered ONE (08:26)
[2021-11-07] MEDS ORDERED: propofoL 200 MG/20 ML VIAL As Ordered ONE (08:26)
[2021-11-07] MEDS ORDERED: fentaNYL 250 MCG/5 ML INJECTION As Ordered ONE (08:26)
[2021-11-07] MEDS ORDERED: PHENYLephrine 500MCG 5ML (100MCG/ML) SYRINGE As Ordered ONE (08:27)
[2021-11-07] MEDS ORDERED: ePHEDrine SULFATE 25 MG/5 ML(5MG/ML) SYRINGE As Ordered ONE (08:45)
[2021-11-07] MEDS ORDERED: fentaNYL 100 MCG/2 ML INJECTION As Ordered ONE (09:49)
[2021-11-07] MEDS: fentaNYL 100 MCG/2 ML INJECTION IV PRN ×4 (09:50→10:09)
[2021-11-07] MEDS ORDERED: PERC5TAB12 PO (09:53)
[2021-11-07] MEDS ORDERED: LR 1,000 ML IV SCH (10:00)
[2021-11-07] MEDS ORDERED: oxyCODONE 5MG TAB PO PRN (10:00)
[2021-11-07] MEDS ORDERED: METOCLOPRAMIDE INJ 10MG/2ML VIAL (J2765 PER 1) IV PRN (10:00)
[2021-11-07] MEDS ORDERED: ONDANSETRON 4MG/2ML VIAL IV PRN (10:00)
[2021-11-07 11:44] VITALS: BP 129/77
== END 2021-11-07 11:44 | disposition home or self-care (01) ==
LOC: M SDC 06:13
PROVIDERS: ATTEND Orthopaedic Surgery Hand Surgery
DX: M70.22 Olecranon bursitis, left elbow (principal); M77.8 Other enthesopathies, not elsewhere classified; I10 Essential (primary) hypertension; N52.9 Male erectile dysfunction, unspecified; Z87.820 Personal history of traumatic brain injury; Z79.899 Other long term (current) drug therapy; Z88.1 Allergy status to other antibiotic agents; F17.210 Nicotine dependence, cigarettes, uncomplicated
CPT/HCPCS: 24147; 76000; 87070; 87075; 88304; J0131; J0690; J1100; J1885; J2250; J2370; J2405; J3010

== ENCOUNTER → 2021-11-17 | Outpatient (CLI) | payer OTHER ==
[~2021-11-17] MED LIST changes: -LIDOCAINE 1% MDV 20ML VIAL SQ PRN; -LR 1,000 ML IV ONE; +PERC5TAB12 PO; -ceFAZolin SOD 2 GM in IV 1 EA IV ONE
== END ==
LOC: M SOG 11-16 16:01
PROVIDERS: ATTEND Orthopaedic Surgery Hand Surgery
DX: M70.22 Olecranon bursitis, left elbow (principal)

== ENCOUNTER → 2022-01-10 | Outpatient (REF) | payer OTHER | LOC: M SFHCPLAZ 16:40 | PROVIDERS: ATTEND Physician Assistant | DX: R05.9 Cough, unspecified (principal) ==

== ENCOUNTER → 2022-03-21 | Outpatient (CLI) | payer OTHER | LOC: M PLAIMG 12:31 | PROVIDERS: ATTEND Psychiatry & Neurology Neurology | DX: S06.2X9D Diffuse traumatic brain injury with loss of consciousness of unspecified duration, subsequent encounter (principal); R53.1 Weakness; R26.0 Ataxic gait; G93.89 Other specified disorders of brain; Z18.11 Retained magnetic metal fragments ==

== ENCOUNTER → 2022-08-01 | Outpatient (REF) | payer OTHER | LOC: M SFHCPLAZ 13:00 | PROVIDERS: ATTEND Physician Assistant | DX: R05.1 Acute cough (principal) ==

== ENCOUNTER → 2022-11-09 | Outpatient (CLI) | payer OTHER | LOC: M LABSMTC 10:32 | PROVIDERS: ATTEND Family Medicine | DX: Z20.822 Contact with and (suspected) exposure to COVID-19 (principal) | CPT/HCPCS: 87635; C9803 ==

== ENCOUNTER → 2022-12-26 | Outpatient (REF) | payer OTHER ==
[2022-12-26 17:33] LABS: BASO # 0.1 10^3/uL (0.0-0.2); BASO % 0.9 % (0.0-1.0); EOS # 0.2 10^3/uL (0.0-0.5); EOS % 2.4 % (0.0-3.0); HEMATOCRIT 41.3 % (42.0-52.0); HEMOGLOBIN 13.7 g/dl (13.5-17.5); LYMPH # 2.1 10^3/uL (1.5-5.0); LYMPH % 30.2 % (24.0-44.0); MEAN CORPUSCULAR HEMOGLOBIN 33.2 pg (27.0-33.0); MEAN CORPUSCULAR HGB CONC 33.2 g/dl (32.0-36.5); MONO # 0.6 10^3/uL (0.0-0.8); MONO % 8.5 % (2.0-8.0); NEUTROPHILS # 4.1 10^3/uL (1.5-8.5); NEUTROPHILS % 57.6 % (36.0-66.0); PLATELET COUNT, AUTOMATED 203 10^3/uL (150-450); RED BLOOD COUNT 4.13 10^6/uL (4.30-6.10)
[2022-12-26 17:43] LABS: ALBUMIN 4.1 G/DL (3.2-5.2); ALKALINE PHOSPHATASE 67 U/L (46-116); ALT/SGPT 25 U/L (7.0-40); AST/SGOT 28 U/L (<34); BILIRUBIN,TOTAL 0.6 MG/DL (0.3-1.2); BLOOD UREA NITROGEN 18 MG/DL (9-23); CALCIUM LEVEL 9.4 MG/DL (8.3-10.6); CARBON DIOXIDE LEVEL 28 MMOL/L (20-31); CHLORIDE LEVEL 103 MMOL/L (98-107); CHOLESTEROL LEVEL 219 MG/DL (<200); CHOLESTEROL RISK RATIO 3.32 (<5); CREATININE FOR GFR 0.88 MG/DL (0.70-1.30); GLOMERULAR FILTRATION RATE > 60.0 (>49); GLUCOSE, FASTING 84 MG/DL (74-106); HDL CHOLESTEROL 65.8 MG/DL (>40); LDL CHOLESTEROL 106.8 MG/DL (<100); NON-HDL-C 153.2 MG/DL; POTASSIUM SERUM 4.4 MMOL/L (3.5-5.1); SODIUM LEVEL 137 MMOL/L (136-145); THYROID STIMULATING HORMONE 2.267 uIU/ML (0.55-4.78); TOTAL 25(OH) VITAMIN D 10.3 NG/ML (20.0-100.0); TOTAL PROTEIN 7.2 G/DL (5.7-8.2); TRIGLYCERIDES LEVEL 232 MG/DL (<150)
== END ==
LOC: M SFHCADAM 12:02
PROVIDERS: ATTEND Physician Assistant Medical
DX: I10 Essential (primary) hypertension (principal); F17.210 Nicotine dependence, cigarettes, uncomplicated

== ENCOUNTER → 2023-10-23 | Outpatient (CLI) | payer OTHER | LOC: M ADAMS 11:31 | PROVIDERS: ATTEND Physician Assistant Medical | DX: M54.50 Low back pain, unspecified (principal); M47.816 Spondylosis without myelopathy or radiculopathy, lumbar region; M43.16 Spondylolisthesis, lumbar region; M46.06 Spinal enthesopathy, lumbar region ==

== ENCOUNTER → 2023-10-23 | Outpatient (REF) | payer OTHER ==
[2023-10-23 14:26] LABS: BASO # 0.1 10^3/uL (0.0-0.2); BASO % 0.9 % (0.0-1.0); EOS # 0.3 10^3/uL (0.0-0.5); EOS % 4.1 % (0.0-3.0); HEMATOCRIT 45.1 % (42.0-52.0); HEMOGLOBIN 14.6 g/dl (13.5-17.5); LYMPH # 2.5 10^3/uL (1.5-5.0); LYMPH % 35.1 % (24.0-44.0); MEAN CORPUSCULAR HEMOGLOBIN 33.6 pg (27.0-33.0); MEAN CORPUSCULAR HGB CONC 32.4 g/dl (32.0-36.5); MEAN CORPUSCULAR VOLUME 103.9 fl (80.0-96.0); MONO # 0.5 10^3/uL (0.0-0.8); MONO % 6.7 % (2.0-8.0); NEUTROPHILS # 3.7 10^3/uL (1.5-8.5); NEUTROPHILS % 52.8 % (36.0-66.0); PLATELET COUNT, AUTOMATED 201 10^3/uL (150-450); RED BLOOD COUNT 4.34 10^6/uL (4.30-6.10)
[2023-10-23 14:37] LABS: ERYTHROCYTE SEDIMENTATION RATE 29 mm/hr (0-20)
[2023-10-25 00:07] LABS: ANA (HEP2) Positive (.)
== END ==
LOC: M SFHCADAM 11:06
PROVIDERS: ATTEND Physician Assistant Medical
DX: R29.898 Other symptoms and signs involving the musculoskeletal system (principal)

== ENCOUNTER → 2023-11-30 | Outpatient (CLI) | payer OTHER | LOC: M ADAMS 14:09 | PROVIDERS: ATTEND Physician Assistant | DX: J22 Unspecified acute lower respiratory infection (principal) ==

== ENCOUNTER → 2024-03-13 | Outpatient (REF) | payer OTHER ==
[2024-03-13 13:59] LABS: BASO # 0.1 10^3/uL (0.0-0.2); BASO % 1.1 % (0.0-1.0); EOS # 0.2 10^3/uL (0.0-0.5); EOS % 3.2 % (0.0-3.0); HEMATOCRIT 43.7 % (42.0-52.0); HEMOGLOBIN 14.7 g/dl (13.5-17.5); LYMPH # 2.9 10^3/uL (1.5-5.0); LYMPH % 38.6 % (24.0-44.0); MEAN CORPUSCULAR HEMOGLOBIN 34.4 pg (27.0-33.0); MEAN CORPUSCULAR HGB CONC 33.6 g/dl (32.0-36.5); MEAN CORPUSCULAR VOLUME 102.3 fl (80.0-96.0); MONO # 0.6 10^3/uL (0.0-0.8); MONO % 7.9 % (2.0-8.0); NEUTROPHILS # 3.6 10^3/uL (1.5-8.5); NEUTROPHILS % 48.7 % (36.0-66.0); PLATELET COUNT, AUTOMATED 209 10^3/uL (150-450); RED BLOOD COUNT 4.27 10^6/uL (4.30-6.10); WHITE BLOOD COUNT 7.4 10^3/uL (4.0-10.0)
[2024-03-13 14:25] LABS: THYROID STIMULATING HORMONE 2.162 uIU/ML (0.55-4.78); TOTAL 25(OH) VITAMIN D 21.5 NG/ML (20.0-100.0)
[2024-03-13 14:28] LABS: ALBUMIN 4.1 G/DL (3.2-5.2); ALKALINE PHOSPHATASE 76 U/L (46-116); ALT/SGPT 22 U/L (7.0-40); AST/SGOT 20 U/L (<34); BILIRUBIN,TOTAL 0.3 MG/DL (0.3-1.2); BLOOD UREA NITROGEN 29 MG/DL (9-23); CALCIUM LEVEL 9.9 MG/DL (8.3-10.6); CARBON DIOXIDE LEVEL 28 MMOL/L (20-31); CHLORIDE LEVEL 105 MMOL/L (98-107); CHOLESTEROL LEVEL 181 MG/DL (<200); CHOLESTEROL RISK RATIO 3.01 (<5); GLOMERULAR FILTRATION RATE > 60.0 (>49); GLUCOSE, FASTING 93 MG/DL (74-106); LDL CHOLESTEROL 103.2 MG/DL (<100); POTASSIUM SERUM 4.7 MMOL/L (3.5-5.1); SODIUM LEVEL 139 MMOL/L (136-145); TOTAL PROTEIN 7.1 G/DL (5.7-8.2); TRIGLYCERIDES LEVEL 89 MG/DL (<150)
== END ==
LOC: M SFHCADAM 09:28
PROVIDERS: ATTEND Physician Assistant Medical
DX: I10 Essential (primary) hypertension (principal); F17.210 Nicotine dependence, cigarettes, uncomplicated; N52.9 Male erectile dysfunction, unspecified; Z12.11 Encounter for screening for malignant neoplasm of colon; Z12.12 Encounter for screening for malignant neoplasm of rectum

== ENCOUNTER → 2024-04-17 | Outpatient (CLI) | payer OTHER | LOC: M RAD 08:32 | PROVIDERS: ATTEND Physician Assistant Medical | DX: Z82.49 Family history of ischemic heart disease and other diseases of the circulatory system (principal) ==

== ENCOUNTER 2024-07-29 10:50 | Emergency (ER) | payer MEDICARE, OTHER ==
[~2024-07-29] VITALS: Ht 177.8 cm; Wt 75.3 kg
[2024-07-29] MEDS ORDERED: OMEP40CA5 (11:00)
[2024-07-29] MEDS ORDERED: LISI20TA33 (11:00)
[2024-07-29] MEDS: LIDOCAINE 1% MDV 20ML VIAL SC ONE (12:40)
[2024-07-29 16:46] VITALS: BP 189/83; TEMP 97.8; O2SAT 98
== END 2024-07-29 16:45 | disposition home or self-care (01) ==
LOC: M ED 10:50
DX: S63.283A Dislocation of proximal interphalangeal joint of left middle finger, initial encounter (principal); S62.613A Displaced fracture of proximal phalanx of left middle finger, initial encounter for closed fracture; W19.XXXA Unspecified fall, initial encounter; I10 Essential (primary) hypertension; F17.200 Nicotine dependence, unspecified, uncomplicated; Y92.009 Unspecified place in unspecified non-institutional (private) residence as the place of occurrence of the external cause; Y93.89 Activity, other specified; Y99.9 Unspecified external cause status; Z88.1 Allergy status to other antibiotic agents; Z79.811 Long term (current) use of aromatase inhibitors; Z79.899 Other long term (current) drug therapy

== ENCOUNTER → 2024-08-08 | Outpatient (CLI) | payer MEDICARE ==
[~2024-08-08] MED LIST changes: +LISI20TA33; +OMEP40CA5
== END ==
LOC: M SOG 13:13
PROVIDERS: ATTEND Orthopaedic Surgery Hand Surgery
DX: M79.645 Pain in left finger(s) (principal); S62.625A Displaced fracture of middle phalanx of left ring finger, initial encounter for closed fracture; X58.XXXA Exposure to other specified factors, initial encounter; Y92.9 Unspecified place or not applicable; Y93.9 Activity, unspecified; Y99.9 Unspecified external cause status

== ENCOUNTER 2024-08-15 10:07 | Day surgery (SDC) | payer MEDICARE ==
[~2024-08-15] VITALS: Ht 180.3 cm; Wt 74.8 kg
[2024-08-15] MEDS ORDERED: LR 1,000 ML IV SCH (10:10)
[2024-08-15] MEDS ORDERED: fentaNYL 100 MCG/2 ML INJECTION As Ordered ONE (10:50)
[2024-08-15] MEDS ORDERED: MIDAZOLAM INJ 2MG/2ML VIAL As Ordered ONE (10:50)
[2024-08-15] MEDS ORDERED: propofoL 200 MG/20 ML VIAL As Ordered ONE (10:50)
[2024-08-15] MEDS ORDERED: LIDOCAINE 2% 100MG/5ML SDV (FOR ANES.) As Ordered ONE (10:51)
[2024-08-15] MEDS: ceFAZolin SOD 2 GM in IV 1 EA IV ONE (13:25)
[2024-08-15] MEDS ORDERED: HYDROmorphone HCL 2MG/ML 1ML VIAL As Ordered ONE (13:42)
[2024-08-15] MEDS ORDERED: SUGAMMADEX SODIUM 500 MG/5 ML VIAL (BRIDION) As Ordered ONE (15:11)
[2024-08-15] MEDS: BACITRACIN OINTMENT 30GM TUBE As Ordered ONE (15:15)
[2024-08-15] MEDS ORDERED: ACETAMINOPHEN 1000MG/100ML IV BAG As Ordered ONE (15:22)
[2024-08-15] MEDS ORDERED: KETOROLAC 60MG 2ML VIAL As Ordered ONE (15:24)
[2024-08-15] MEDS ORDERED: oxyCODONE 5MG TAB PO PRN (15:55)
[2024-08-15] MEDS ORDERED: fentaNYL 100 MCG/2 ML INJECTION IV PRN (15:55)
[2024-08-15] MEDS ORDERED: PERC5TAB12 PO (16:23)
[2024-08-15 16:25] VITALS: BP 147/81; TEMP 97.7; O2SAT 99
== END 2024-08-15 16:47 | disposition home or self-care (01) ==
LOC: M SDC 10:07
PROVIDERS: ATTEND Orthopaedic Surgery Hand Surgery
DX: S63.283A Dislocation of proximal interphalangeal joint of left middle finger, initial encounter (principal); I10 Essential (primary) hypertension; K21.9 Gastro-esophageal reflux disease without esophagitis; Z86.73 Personal history of transient ischemic attack (TIA), and cerebral infarction without residual deficits; F17.200 Nicotine dependence, unspecified, uncomplicated; Z79.899 Other long term (current) drug therapy; Z88.1 Allergy status to other antibiotic agents
CPT/HCPCS: 26785; 76000; C1713; J0131; J0665; J0690; J1171; J1885; J2250; J3010

== ENCOUNTER → 2024-08-26 | Outpatient (CLI) | payer MEDICARE | LOC: M SOG 07:56 | PROVIDERS: ATTEND Physician Assistant | DX: M79.645 Pain in left finger(s) (principal); S63.251A Unspecified dislocation of left index finger, initial encounter; X58.XXXA Exposure to other specified factors, initial encounter; Y92.9 Unspecified place or not applicable; Y93.9 Activity, unspecified; Y99.9 Unspecified external cause status ==

== ENCOUNTER → 2024-09-16 | Outpatient (CLI) | payer MEDICARE | LOC: M SOG 07:57 | PROVIDERS: ATTEND Physician Assistant | DX: M79.645 Pain in left finger(s) (principal); Z53.9 Procedure and treatment not carried out, unspecified reason ==

== ENCOUNTER 2025-05-26 10:33 | Day surgery (SDC) | payer MEDICARE ==
[~2025-05-26] VITALS: Ht 180.3 cm; Wt 73.5 kg
[~2025-05-26 10:33] MED LIST changes: +ALBU8.5H INH
[2025-05-26] MEDS ORDERED: LIDOCAINE 2% 100 MG/5 ML SDV (FOR ANES.) As Ordered ONE (11:33)
[2025-05-26 12:29] VITALS: BP 165/97; O2SAT 99
== END 2025-05-26 12:36 | disposition home or self-care (01) ==
LOC: M OPP 10:33
PROVIDERS: ATTEND Surgery
DX: D12.6 Benign neoplasm of colon, unspecified (principal); K64.1 Second degree hemorrhoids; K57.30 Diverticulosis of large intestine without perforation or abscess without bleeding; K92.1 Melena; Z88.1 Allergy status to other antibiotic agents; Z79.899 Other long term (current) drug therapy; R56.9 Unspecified convulsions; F17.210 Nicotine dependence, cigarettes, uncomplicated

== ENCOUNTER → 2025-06-18 | Outpatient (REF) | payer MEDICARE ==
[2025-06-18 14:06] LABS: ALT/SGPT 15 U/L (7.0-40); AST/SGOT 22 U/L (<34); CALCIUM LEVEL 9.3 MG/DL (8.3-10.6); CARBON DIOXIDE LEVEL 28 MMOL/L (20-31); CHLORIDE LEVEL 109 MMOL/L (98-107); CHOLESTEROL LEVEL 183 MG/DL (<200); CHOLESTEROL RISK RATIO 3.12 (<5); CREATININE FOR GFR 0.85 MG/DL (0.70-1.30); GLOMERULAR FILTRATION RATE > 90.0 (>49); LDL CHOLESTEROL 89.0 MG/DL (<100); NON-HDL-C 124.4 MG/DL; POTASSIUM SERUM 3.9 MMOL/L (3.5-5.1); SODIUM LEVEL 138 MMOL/L (136-145); TRIGLYCERIDES LEVEL 177 MG/DL (<150)
[2025-06-18 14:09] LABS: FREE T4 1.08 NG/DL (0.89-1.76)
[2025-06-18 14:10] LABS: BASO # 0.1 10^3/uL (0.0-0.2); BASO % 0.8 % (0.0-1.0); EOS # 0.3 10^3/uL (0.0-0.5); EOS % 3.2 % (0.0-3.0); LYMPH # 2.3 10^3/uL (1.5-5.0); LYMPH % 29.5 % (24.0-44.0); MONO # 0.6 10^3/uL (0.0-0.8); MONO % 7.8 % (2.0-8.0); NEUTROPHILS # 4.6 10^3/uL (1.5-8.5); NEUTROPHILS % 58.4 % (36.0-66.0); PLATELET COUNT, AUTOMATED 228 10^3/uL (150-450)
== END ==
LOC: M SFHCADAM 08:31
PROVIDERS: ATTEND Physician Assistant Medical
DX: I10 Essential (primary) hypertension (principal); J41.0 Simple chronic bronchitis; Z82.49 Family history of ischemic heart disease and other diseases of the circulatory system

== ENCOUNTER → 2025-06-18 | Outpatient (CLI) | payer MEDICARE | LOC: M RAD 09:52 | PROVIDERS: ATTEND Physician Assistant Medical | DX: I77.819 Aortic ectasia, unspecified site (principal) ==

== ENCOUNTER → 2025-07-10 | Outpatient (REF) | payer MEDICARE | LOC: M SFHCADAM 16:53 | PROVIDERS: ATTEND Physician Assistant Medical | DX: D64.9 Anemia, unspecified (principal) ==

== ENCOUNTER → 2025-07-20 | Outpatient (REF) | payer MEDICARE ==
[2025-07-20 17:17] LABS: IRON (FE) 65.0 UG/DL (65-175); PERCENT SATURATION 18.6 % (19.7-50.0)
[2025-07-20 17:20] LABS: VITAMIN B12 LEVEL 407.0 PG/ML (211-911)
== END ==
LOC: M SFHCADAM 13:48
PROVIDERS: ATTEND Physician Assistant Medical
DX: D64.9 Anemia, unspecified (principal)

== ENCOUNTER → 2025-08-13 | Outpatient (CLI) | payer MEDICARE | LOC: M ADAMS 08:10 | PROVIDERS: ATTEND Physician Assistant Medical | DX: R05.8 Other specified cough (principal) ==